=== PATIENT | male | born 1945 | race Caucasian/White ===

== ENCOUNTER 2017-10-12 15:29 | Outpatient (CLI) | payer MEDICARE ==
--- NOTE | 2017-10-13 22:14 | EKG ---
Test Reason : Blood Pressure : / mmHG Vent. Rate : 068 BPM Atrial Rate : 068 BPM P-R Int : 142 ms QRS Dur : 098 ms QT Int : 370 ms P-R-T Axes : 046 032 070 degrees QTc Int : 393 ms Sinus rhythm with marked sinus arrhythmia Incomplete right bundle branch block Borderline ECG When compared with ECG of 06-AUG-2012 09:32, No significant change was found Confirmed by ANJALI SHANE, . S. (4) on 10/13/2017 10:13:52 PM Referred By: MIRELA Confirmed By:DR. Benita ALBA MD
== END 2017-10-12 15:30 | disposition home or self-care (01) ==
LOC: LABBT 15:29
PROVIDERS: ATTEND Neurological Surgery
DX: Z01.818 Encounter for other preprocedural examination (principal); M48.02 Spinal stenosis, cervical region; M54.41 Lumbago with sciatica, right side; M54.16 Radiculopathy, lumbar region; R26.89 Other abnormalities of gait and mobility
CPT/HCPCS: 93005; 93010

== ENCOUNTER 2017-10-17 10:56 | Day surgery (SDC) | payer MEDICARE ==
[2017-10-12 15:23] VITALS: BMI 22.4
[2017-10-17] MEDS ORDERED: Midazolam HCl 2 mg/2 ml Vial ONE (11:39)
[2017-10-17] MEDS ORDERED: Fentanyl 100 MCG/2 ML VIAL ONE (11:39)
[2017-10-17] MEDS ORDERED: Propofol 500 MG/50 ML VIAL ONE (11:53)
--- NOTE | 2017-10-17 15:46 | MRI ---
MRI OF THE LUMBAR SPINE 10/17/17 COMPARISON: None. HISTORY: Lumbar radiculopathy, acute right sided low back pain with right side radiculopathy/sciatica. TECHNIQUE: Multiplanar and multisequence MR imaging of the lumbar spine is provided without contrast. FINDINGS: There is significant lumbar spine dextroscoliosis. The sagittal STIR imaging demonstrates no discrete focal area of osseous marrow edema. There is no significant anterolisthesis or retrolisthesis noted. Assuming five lumbar type vertebral bodies, conus medullaris terminates at the T12-L1 level. T12-L1: There is disc desiccation. There is mild bilateral neural foraminal stenosis on the basis of facet hypertrophy. No significant central stenosis. L1-2: There is disc space narrowing, degenerative end plate change and anterior osteophyte formation. There is bilateral facet hypertrophy, left greater than right. There is severe left neural foraminal stenosis. No significant central canal or right neural foraminal stenosis. There is left lateral ost eophyte formation. L2-3: Disc space narrowing, disc desiccation, anterior osteophyte formation and disc osteophyte compl ex present. There is no significant canal stenosis. Facet hypertrophy on the left with neural foramin al encroachment causes a moderate degree of left neural foraminal stenosis. No significant right neur al foraminal stenosis. L3-4: There is disc space narrowing and disc desiccation. There is left lateral osteophyte formation and bilateral facet hypertrophy, left greater than right. Moderate left neural foraminal stenosis. No significant central canal or right neural foraminal stenosis. L4-5: Bilateral facet hypertrophy, right greater than left. There is disc space narrowing and disc de siccation with no central canal stenosis. There is moderate/severe right neural foraminal stenosis. N o significant left neural foraminal stenosis. L5-S1: There is disc space narrowing and disc desiccation and mild disc bulge with no central canal s tenosis. There is right sided facet hypertrophy with mild right neural foraminal stenosis. No left ne ural foraminal stenosis. Imaged retroperitoneal structures demonstrate no acute findings. IMPRESSION: Multilevel lumbar spine degenerative change as described above. POS: [facility]
--- NOTE | 2017-10-17 15:46 | MRI ---
MRI CERVICAL SPINE WITHOUT CONTRAST: Date: 10/17/17 Multiplanar, multisequential imaging of cervical spine obtained. HISTORY: Cervical pain. Imbalance. Cervical stenosis. Prior cervical spine surgery. Comparison made to cervical spine MRI of 09/21/12. FINDINGS: There has been prior ACDF procedure as described previously. Anterior plate and screws are seen at C3 and at C4. There has been prior bony fusion at C2-3, C4-5, and C5-6. Posterior bony changes seen evaristo ng the posterior aspect of the vertebral bodies from C3 through C7. At C3-4, hypertrophic changes impinge on the anterior cord. Hypertrophic changes in the posterior can al impinge on the posterior aspect of the cord at C2-3 as well. These changes produce slight kinking of the cord with moderate cervical canal stenosis, similar to the prior exam of 2012. At C4-5, mild posterior bony hypertrophy efface the anterior subarachnoid space without significant c ord impingement. At C5-6, posterior bony hypertrophy is seen impinging on the anterior cord. This is slightly more pro nounced paracentrally to the right and there is right foraminal narrowing due to hypertrophic change. At C6-7, posterior disc bulge and spondylosis abuts the anterior cord. Bilateral foraminal stenosis d ue to hypertrophic change, more pronounced on the right. At C7-T1, posterior disc bulge and spondylosis abuts the anterior cord. Mild left foraminal narrowing due to facet and uncinate hypertrophy. There continues to be linear abnormal signal in the cord at C4 seen in the lateral aspect of the cord on both sides, possibly representing changes of myelomalacia. This was described previously and is u nchanged in appearance. IMPRESSION: 1. Postoperative degenerative changes of cervical spine with fusion changes described above. Hypertr ophic changes impinge into the spinal canal at multiple levels as described above. Mild kinking of th e cord at C2-3 due to the hypertrophic change is similar to the prior exam. 2. Linear T2 signal abnormality seen in the peripheral cord bilaterally at C4 is stable in appearanc e. Cervical canal and foraminal stenosis at several levels as described above. POS: [facility]
== END 2017-10-17 15:16 | disposition home or self-care (01) ==
LOC: SDC/OP 10:56
PROVIDERS: ATTEND Neurological Surgery
DX: M48.02 Spinal stenosis, cervical region (principal); M54.16 Radiculopathy, lumbar region; M54.41 Lumbago with sciatica, right side; R26.89 Other abnormalities of gait and mobility; Z88.2 Allergy status to sulfonamides; Z98.1 Arthrodesis status; Z79.899 Other long term (current) drug therapy; Z98.890 Other specified postprocedural states
CPT/HCPCS: 72141; 72148; J2250; J2704; J3010

== ENCOUNTER 2020-03-09 16:51 | Emergency (ER) | payer MEDICARE ==
--- NOTE | 2020-03-09 17:34 | RAD ---
SINGLE VIEW OF THE CHEST: Comparison: 08-26-16 History: Heart fluttering and chest pain. FINDINGS: Single view of the chest shows normal sized cardiomediastinal silhouette with atherosclerotic calcifi cations in the aorta. There is no evidence of consolidation, mass or pleural effusion. IMPRESSION: No evidence of acute cardiopulmonary disease. POS: [facility]
[2020-03-09 18:09] LABS: #Basophils 0.1 thou/uL (0.0-0.2); #Eosinphils 0.2 thou/uL (0.0-0.7); #Lymphocytes 0.9 thou/uL (1.20-3.40); #Monocytes 0.3 thou/uL (0.11-0.59); #Neutrophils 2.3 thou/uL (1.40-6.50); %Eosinophils 4.4 % (0.0-10.0); %Lymphocytes 24.2 % (21.0-51.0); %Monocytes 8.7 % (0.0-10.0); %Neutrophils 60.7 % (42.0-75.0); Hemoglobin 14.4 g/dL (14.0-18.0); Mean Corpuscular HGB CONC 34.3 g/dL (32.0-36.0); Mean Corpuscular Hemoglobin 30.9 pg (27.0-31.0); Mean Corpuscular Volume 90.2 fL (78.0-98.0); Mean Platelet Volume 7.1 fL (7.4-10.4); Platelet Count 154 thou/uL (130-400); RBC Distribution Width 11.8 % (11.5-14.5); Red Blood Cell (RBC) Count 4.67 mill/uL (4.70-6.10); White Blood Cell (WBC) Count 3.8 thou/uL (4.8-10.8)
[2020-03-09 18:41] LABS: ALT (SGPT) 18 U/L (8-55); AST (SGOT) 24 U/L (5-34); Albumin 4.3 g/dL (3.4-4.8); Alkaline Phosphatase 289 U/L (40-110); Anion Gap 12 mmol/L (10-20); BUN (Urea Nitrogen) 14 mg/dL (8.4-25.7); Bilirubin, Total 0.6 mg/dL (0.2-1.2); Calc. Creatinine Clearance 0 mL/min (70-130); Carbon Dioxide 31 mmol/L (23-31); Chloride 101 mmol/L (98-107); Estimated GFR-MDRD Greater than 90; Glucose 119 mg/dL (83-110); Potassium 4.6 mmol/L (3.5-5.1); Protein, Total 7.3 g/dL (5.8-8.1); Sodium 139 mmol/L (136-145)
[2020-03-09] MEDS ORDERED: Magnesium 2 GM/50 ML BAG (IN WATER) ONE (18:52)
== END 2020-03-09 20:27 | disposition home or self-care (01) ==
LOC: ERS 16:51
DX: R00.2 Palpitations (principal); E78.5 Hyperlipidemia, unspecified; E11.9 Type 2 diabetes mellitus without complications
CPT/HCPCS: 71045; 80053; 83735; 84484; 85025; 93005; 96365; J3475

== ENCOUNTER 2020-09-03 17:02 | Outpatient (CLI) | payer OTHER ==
[2020-09-03 17:53] LABS: SARS-CoV-2 PCR by NAA Not Detected (NotDetected)
== END 2020-09-03 17:03 | disposition home or self-care (01) ==
LOC: LABBT 17:02
PROVIDERS: ATTEND Neurological Surgery
DX: Z01.812 Encounter for preprocedural laboratory examination (principal); M54.16 Radiculopathy, lumbar region; Z20.822 Contact with and (suspected) exposure to COVID-19
CPT/HCPCS: 87635; U0003; U0005

== ENCOUNTER 2020-09-07 09:54 | Day surgery (SDC) | payer MEDICARE ==
[2020-09-04 12:03] VITALS: BMI 23.0
[2020-09-07] MEDS ORDERED: Midazolam HCl 2 mg/2 ml Vial ONE (11:46)
[2020-09-07] MEDS ORDERED: Fentanyl 100 MCG/2 ML VIAL ONE (11:46)
[2020-09-07] MEDS ORDERED: PROPOFOL 20 ML ONE (11:47)
[2020-09-07] MEDS ORDERED: Lidocaine 1% PF 5 ML VIAL ONE (12:30)
== END 2020-09-07 14:15 | disposition home or self-care (01) ==
LOC: SDC/OP 09:54
PROVIDERS: ATTEND Neurological Surgery
DX: M41.86 Other forms of scoliosis, lumbar region (principal); M43.16 Spondylolisthesis, lumbar region; M54.16 Radiculopathy, lumbar region; M48.061 Spinal stenosis, lumbar region without neurogenic claudication; K21.9 Gastro-esophageal reflux disease without esophagitis; E11.9 Type 2 diabetes mellitus without complications; Z79.82 Long term (current) use of aspirin; Z79.899 Other long term (current) drug therapy; Z88.2 Allergy status to sulfonamides; Z98.1 Arthrodesis status
CPT/HCPCS: 72148; J2250; J2704; J3010

== ENCOUNTER 2020-10-21 18:10 | Observation (INO) | payer MEDICARE, OTHER ==
[~2020-10-21 18:10] MED LIST: Iopamidol-370 76% 500 ML 1 ML ONE
[2020-10-21] MEDS ORDERED: Lidocaine Viscous Sol 2% 15 ml UD Cup ONE (18:51)
[2020-10-21] MEDS ORDERED: Mag-Al 1200 mg/1200 mg/30 ML UDCUP ONE (18:51)
[2020-10-21] MEDS ORDERED: Pantoprazole 40 MG VIAL ONE (18:51)
[2020-10-21 19:21] LABS: #Eosinphils 0.2 thou/uL (0.0-0.7); #Lymphocytes 1.1 thou/uL (1.20-3.40); #Monocytes 0.5 thou/uL (0.11-0.59); #Neutrophils 2.5 thou/uL (1.40-6.50); %Basophils 0.8 % (0.0-1.0); %Eosinophils 3.6 % (0.0-10.0); %Lymphocytes 26.2 % (21.0-51.0); %Monocytes 10.7 % (0.0-10.0); %Neutrophils 58.7 % (42.0-75.0); Hemoglobin 13.7 g/dL (14.0-18.0); Mean Corpuscular HGB CONC 34.2 g/dL (32.0-36.0); Mean Corpuscular Hemoglobin 31.1 pg (27.0-31.0); Mean Corpuscular Volume 90.8 fL (78.0-98.0); Mean Platelet Volume 6.8 fL (7.4-10.4); Platelet Count 134 thou/uL (130-400); RBC Distribution Width 11.7 % (11.5-14.5); Red Blood Cell (RBC) Count 4.42 mill/uL (4.70-6.10); White Blood Cell (WBC) Count 4.2 thou/uL (4.8-10.8)
[2020-10-21 19:43] LABS: ALT (SGPT) 23 U/L (8-55); AST (SGOT) 29 U/L (5-34); Albumin 4.1 g/dL (3.4-4.8); Alkaline Phosphatase 379 U/L (40-110); Anion Gap 12 mmol/L (10-20); BUN (Urea Nitrogen) 26 mg/dL (8.4-25.7); Bilirubin, Total 0.6 mg/dL (0.2-1.2); CK (CPK) 196 U/L (30-200); Calc. Creatinine Clearance 0 mL/min (70-130); Calcium 9.1 mg/dL (7.8-10.44); Carbon Dioxide 31 mmol/L (23-31); Chloride 101 mmol/L (98-107); Globulin 2.7 g/dL (2.4-3.5); Glucose 116 mg/dL (83-110); Lipase 46 U/L (8-78); Potassium 4.8 mmol/L (3.5-5.1); Protein, Total 6.8 g/dL (5.8-8.1); Sodium 139 mmol/L (136-145)
[2020-10-21] MEDS ORDERED: Aspirin Chewable 81 MG TAB ONE (21:05)
[2020-10-21] MEDS ORDERED: Nitroglycerin 2% Ointment 1 INCH/1 GM Packet ONE (21:05)
[2020-10-21 22:41] LABS: Troponin I Less than 0.010 ng/mL (< 0.028)
[2020-10-21 23:22] VITALS: BMI 24.1
[2020-10-22 01:39] LABS: Troponin I Less than 0.010 ng/mL (< 0.028)
[2020-10-22] MEDS ORDERED: Ondansetron PF 4 MG/2 ML Vial IVP PRN (04:22)
[2020-10-22] MEDS ORDERED: Acetaminophen 325 MG TAB PO PRN (04:22)
[2020-10-22] MEDS ORDERED: Morphine 4 MG/ML VIAL SLOW IVP PRN (04:24)
[2020-10-22] MEDS ORDERED: Nitroglycerin 0.4 MG TAB (25 Tab Bottle) SL PRN (04:24)
[2020-10-22 07:54] VITALS: TEMP 97.2
[2020-10-22] MEDS ORDERED: Regadenoson 0.4 MG/5 ML SYRINGE ONE (08:45)
[2020-10-22] MEDS ORDERED: Atorvastatin Calcium 10 MG TAB PO SCH (09:00)
[2020-10-22] MEDS ORDERED: cycloSPORINE 0.05% Ophthalmic Droperette EA EYE SCH (09:00)
[2020-10-22] MEDS ORDERED: Zinc Sulfate 220 MG CAP PO SCH (09:00)
[2020-10-22] MEDS ORDERED: Magnesium Oxide 400 MG TAB PO SCH (09:00)
[2020-10-22] MEDS ORDERED: Multivit, Therapeutic 1 TAB PO SCH (09:00)
[2020-10-22] MEDS ORDERED: PLECANATIDE 3 MG PO SCH (09:00)
[2020-10-22] MEDS ORDERED: Aspirin Chewable 81 MG TAB PO SCH (09:00)
[2020-10-22 09:19] LABS: Hemoglobin A1c 6.2 % (4.0-6.0)
[2020-10-22 09:36] LABS: Cardiac Risk 1.8 (Less than 4.5)
[2020-10-22 11:49] LABS: SARS-CoV-2 PCR by NAA Not Detected (NotDetected)
[2020-10-22 12:29] VITALS: BP 140/63
== END 2020-10-22 16:17 | disposition home or self-care (01) ==
LOC: ERS 18:10 → 2SW 20:57
PROVIDERS: ADMIT Internal Medicine; ATTEND Internal Medicine
DX: R07.89 Other chest pain (principal); I10 Essential (primary) hypertension; E78.5 Hyperlipidemia, unspecified; K21.9 Gastro-esophageal reflux disease without esophagitis; K30 Functional dyspepsia; E11.9 Type 2 diabetes mellitus without complications; Z79.82 Long term (current) use of aspirin; Z79.899 Other long term (current) drug therapy; Z88.2 Allergy status to sulfonamides; Z20.822 Contact with and (suspected) exposure to COVID-19
CPT/HCPCS: 71045; 71275; 78452; 80053; 80061; 82550; 83036; 83690; 83880; 84484 ×3; 85025; 85379; 93005; 93017; 96374; 99285; A9500; U0003; U0005; 36415; C9113; G0378; J2785; Q9967

== ENCOUNTER 2021-04-19 10:37 | Outpatient (CLI) | payer MEDICARE ==
[2021-04-19 22:02] LABS: SARS-CoV-2 PCR by NAA Not Detected (NotDetected)
== END 2021-04-19 10:38 | disposition home or self-care (01) ==
LOC: LABBT 10:37
PROVIDERS: ATTEND Neurological Surgery
DX: Z01.812 Encounter for preprocedural laboratory examination (principal); M54.12 Radiculopathy, cervical region; Z20.822 Contact with and (suspected) exposure to COVID-19
CPT/HCPCS: U0003; U0005

== ENCOUNTER 2021-04-23 12:14 | Day surgery (SDC) | payer MEDICARE ==
[2021-04-21 14:51] VITALS: BMI 23.7
[2021-04-23] MEDS ORDERED: PROPOFOL 200 MG/20 ML VIAL ONE (14:00)
[2021-04-23] MEDS ORDERED: Ondansetron PF 4 MG/2 ML Vial ONE (14:00)
[2021-04-23] MEDS ORDERED: Dexamethasone 20 MG/5 ML VIAL ONE (14:00)
[2021-04-23] MEDS ORDERED: Lidocaine 1% PF 5 ML VIAL ONE (14:00)
== END 2021-04-23 16:20 | disposition home or self-care (01) ==
LOC: MRI 12:14 → EDSTATUS 14:00 → MRI 16:20
PROVIDERS: ATTEND Neurological Surgery
DX: M50.11 Cervical disc disorder with radiculopathy, high cervical region (principal); M48.02 Spinal stenosis, cervical region; M47.22 Other spondylosis with radiculopathy, cervical region; M43.12 Spondylolisthesis, cervical region; G56.03 Carpal tunnel syndrome, bilateral upper limbs; G56.23 Lesion of ulnar nerve, bilateral upper limbs; Z79.82 Long term (current) use of aspirin; Z79.899 Other long term (current) drug therapy; Z88.2 Allergy status to sulfonamides
CPT/HCPCS: 72141; J1100; J2405; J2704

== ENCOUNTER 2022-05-21 15:42 | Inpatient (IN) | payer OTHER, MEDICARE ==
[2022-05-21] MEDS ORDERED: Boostrix 0.5 ML (Tdap) VIAL (>/=7 yrs of age) ONE (16:01)
[2022-05-21] MEDS ORDERED: Morphine 4 MG/ML VIAL ONE (16:01)
[2022-05-21] MEDS ORDERED: CEFAZOLIN 2 GM VIAL ONE (16:01)
[2022-05-21 16:09] LABS: #Eosinphils 0.2 thou/uL (0.0-0.7); #Monocytes 0.6 thou/uL (0.11-0.59); #Neutrophils 5.5 thou/uL (1.40-6.50); %Basophils 0.4 % (0.0-1.0); %Eosinophils 2.9 % (0.0-10.0); %Lymphocytes 14.2 % (21.0-51.0); %Monocytes 7.6 % (0.0-10.0); Hemoglobin 13.3 g/dL (14.0-18.0); Mean Corpuscular HGB CONC 35.2 g/dL (32.0-36.0); Mean Corpuscular Hemoglobin 32.5 pg (27.0-31.0); Mean Corpuscular Volume 92.4 fl (78.0-98.0); Mean Platelet Volume 6.9 fL (7.4-10.4); Platelet Count 154 10x3/uL (130-400); RBC Distribution Width 11.7 % (11.5-14.5); Red Blood Cell (RBC) Count 4.09 mill/uL (4.70-6.10); White Blood Cell (WBC) Count 7.3 10x3/uL (4.8-10.8)
[2022-05-21 16:30] LABS: ALT (SGPT) 25 U/L (8-55); AST (SGOT) 49 U/L (5-34); Albumin 3.7 g/dL (3.4-4.8); Alkaline Phosphatase 244 U/L (40-110); Anion Gap 13 mmol/L (10-20); BUN (Urea Nitrogen) 22 mg/dL (8.4-25.7); Bilirubin, Total 0.6 mg/dL (0.2-1.2); Calc. Creatinine Clearance 0 mL/min (70-130); Calcium 8.9 mg/dL (7.8-10.44); Carbon Dioxide 29 mmol/L (23-31); Chloride 103 mmol/L (98-107); Estimated GFR 92; Globulin 2.7 g/dL (2.4-3.5); Glucose 109 mg/dL (83-110); Potassium 4.4 mmol/L (3.5-5.1); Protein, Total 6.4 g/dL (5.8-8.1); Sodium 141 mmol/L (136-145)
[2022-05-21 16:51] LABS: CKMB 25.3 ng/mL (0-6.6)
[2022-05-21] MEDS ORDERED: Fentanyl 250 MCG/5 ML VIAL ONE (17:29)
[2022-05-21] MEDS ORDERED: Propofol 1,000 MG/100 ML VIAL IV ONE (17:41)
[2022-05-21] MEDS ORDERED: Midazolam HCl 2 mg/2 ml Vial ONE (17:41)
[2022-05-21] MEDS ORDERED: Ondansetron PF 4 MG/2 ML Vial ONE (17:50)
[2022-05-21] MEDS ORDERED: ePHEDrine 50 MG/ML VIAL ONE (17:50)
[2022-05-21] MEDS ORDERED: PHENYLEPHRINE-NS 100 MCG/ML 10 ML SYRINGE ONE (17:50)
[2022-05-21] MEDS ORDERED: PROPOFOL 200 MG/20 ML VIAL ONE (17:50)
[2022-05-21] MEDS ORDERED: Dexamethasone 20 MG/5 ML VIAL ONE (17:50)
[2022-05-21] MEDS ORDERED: Phenylephrine 10 MG/ML VIAL ONE (17:51)
[2022-05-21] MEDS ORDERED: Ondansetron PF 4 MG/2 ML Vial IVP PRN (18:20)
[2022-05-21] MEDS ORDERED: Morphine 4 MG/ML VIAL SLOW IVP PRN (18:20)
[2022-05-21] MEDS ORDERED: Dextrose 50% Abboject 50 ML SYRINGE SLOW IVP PRN (18:20)
[2022-05-21] MEDS ORDERED: Morphine 2 MG/ML VIAL SLOW IVP PRN (18:20)
[2022-05-21] MEDS ORDERED: Dextrose 5% in Water 1,000 ML IV PRN (18:20)
[2022-05-21] MEDS ORDERED: TETANUS, DIPHTHERIA TOX,ADULT (TDVAX) 0.5 ML VIAL IM ONE (18:20)
[2022-05-21] MEDS ORDERED: Ondansetron ODT 4 MG TAB PO PRN (18:20)
[2022-05-21] MEDS ORDERED: Cyclobenzaprine 10 MG TAB PO PRN (18:22)
[2022-05-21] MEDS ORDERED: traMADol HCl 50 MG TAB PO PRN (18:22)
[2022-05-21] MEDS ORDERED: Sodium Chloride 0.9% 1,000 ML IV SCH (18:30)
[2022-05-21] MEDS ORDERED: Promethazine HCl 25 MG/ML VIAL IM PRN (19:02)
[2022-05-21] MEDS ORDERED: Promethazine HCl 25 MG/ML VIAL IVPB PRN (19:02)
[2022-05-21] MEDS ORDERED: Ondansetron HCl/PF 4 MG/2 ML Vial IVP PRN (19:02)
[2022-05-21] MEDS ORDERED: Fentanyl 100 MCG/2 ML VIAL ONE (19:07)
[2022-05-21 19:56] LABS: Phosphorus 4.5 mg/dL (2.3-4.7)
[2022-05-21] MEDS: traMADol HCl 50 MG TAB PO SCH (21:46)
[2022-05-21] MEDS: CEFAZOLIN 2 GM in Sodium Chloride 0.9% 100 ML IVPB SCH (21:46)
[2022-05-21] MEDS: Senokot S 8.6-50 MG TAB PO SCH (21:47)
[2022-05-21] MEDS: Acetaminophen 500 MG TAB PO SCH (21:47)
[2022-05-21] MEDS: Ketorolac Tromethamine 30 MG/ML VIAL IVP SCH (21:56)
[2022-05-21 22:43] LABS: INR-International Normal Ratio 1.1; PTT 30.1 sec (22.9-36.1); Prothrombin Time 14.8 sec (12.0-14.7)
[2022-05-21 22:50] LABS: Lactic Acid 2.1 mmol/L (0.5-2.2)
[2022-05-21] MEDS: Morphine 4 MG/ML VIAL SLOW IVP PRN (22:52)
[2022-05-21] MEDS: Gabapentin 100 MG CAP PO SCH (23:34)
[2022-05-21] MEDS ORDERED: Sodium Chloride 0.9% 500 ML IV SCH ×2 (23:45→23:59)
[2022-05-21] MEDS ORDERED: Hydrocortisone Sod Succ/PF 100 mg/2 ml Vial IVP SCH (23:59)
[2022-05-22 00:03] LABS: #Lymphocytes 0.4 thou/uL (1.20-3.40); #Monocytes 0.6 thou/uL (0.11-0.59); #Neutrophils 7.8 thou/uL (1.40-6.50); %Eosinophils 0.3 % (0.0-10.0); %Lymphocytes 4.2 % (21.0-51.0); %Monocytes 6.5 % (0.0-10.0); Hemoglobin 10.4 g/dL (14.0-18.0); Mean Corpuscular HGB CONC 33.6 g/dL (32.0-36.0); Mean Corpuscular Hemoglobin 31.1 pg (27.0-31.0); Mean Corpuscular Volume 92.6 fl (78.0-98.0); Mean Platelet Volume 7.1 fL (7.4-10.4); Platelet Count 137 10x3/uL (130-400); RBC Distribution Width 11.6 % (11.5-14.5); Red Blood Cell (RBC) Count 3.33 mill/uL (4.70-6.10); White Blood Cell (WBC) Count 8.8 10x3/uL (4.8-10.8)
[2022-05-22 00:10] LABS: Lactic Acid 1.7 mmol/L (0.5-2.2)
[2022-05-22 00:15] LABS: Anion Gap 12 mmol/L (10-20); BUN (Urea Nitrogen) 25 mg/dL (8.4-25.7); Calc. Creatinine Clearance 63 mL/min (70-130); Calcium 8.1 mg/dL (7.8-10.44); Carbon Dioxide 25 mmol/L (23-31); Chloride 105 mmol/L (98-107); Estimated GFR 90; Glucose 231 mg/dL (83-110); Magnesium 1.9 mg/dL (1.6-2.6); Potassium 4.3 mmol/L (3.5-5.1); Sodium 138 mmol/L (136-145)
[2022-05-22] MEDS: Ketorolac Tromethamine 30 MG/ML VIAL IVP SCH ×4 (00:15→18:21)
[2022-05-22] MEDS ORDERED: Magnesium 2 GM/50 ML(in water) 2 GM in Premix Bag 1 BAG IVPB SCH (00:30)
[2022-05-22] MEDS: Insulin Regular 300 UNITS/3 ML VIAL SC PRN ×2 (01:06→05:33)
[2022-05-22] MEDS: traMADol HCl 50 MG TAB PO SCH (01:06)
[2022-05-22] MEDS: Acetaminophen 500 MG TAB PO SCH ×4 (01:07→20:00)
[2022-05-22 05:17] LABS: Phosphorus 5.6 mg/dL (2.3-4.7)
[2022-05-22 05:18] LABS: #Basophils 0.1 thou/uL (0.0-0.2); #Lymphocytes 0.3 thou/uL (1.20-3.40); #Monocytes 0.6 thou/uL (0.11-0.59); #Neutrophils 7.4 thou/uL (1.40-6.50); %Basophils 0.7 % (0.0-1.0); %Eosinophils 0.3 % (0.0-10.0); %Lymphocytes 3.5 % (21.0-51.0); %Monocytes 7.1 % (0.0-10.0); %Neutrophils 88.3 % (42.0-75.0); Hemoglobin 10.4 g/dL (14.0-18.0); Mean Corpuscular HGB CONC 33.8 g/dL (32.0-36.0); Mean Corpuscular Hemoglobin 31.7 pg (27.0-31.0); Mean Corpuscular Volume 93.9 fl (78.0-98.0); Mean Platelet Volume 7.2 fL (7.4-10.4); Platelet Count 143 10x3/uL (130-400); RBC Distribution Width 11.7 % (11.5-14.5); Red Blood Cell (RBC) Count 3.28 mill/uL (4.70-6.10); White Blood Cell (WBC) Count 8.4 10x3/uL (4.8-10.8)
[2022-05-22 05:21] LABS: Anion Gap 13 mmol/L (10-20); BUN (Urea Nitrogen) 25 mg/dL (8.4-25.7); Calc. Creatinine Clearance 67 mL/min (70-130); Calcium 8.1 mg/dL (7.8-10.44); Carbon Dioxide 23 mmol/L (23-31); Chloride 107 mmol/L (98-107); Estimated GFR 92; Glucose 231 mg/dL (83-110); Magnesium 2.4 mg/dL (1.6-2.6); Potassium 4.6 mmol/L (3.5-5.1); Sodium 138 mmol/L (136-145)
[2022-05-22 05:25] LABS: Troponin I 0.102 ng/mL (< 0.028)
[2022-05-22] MEDS: Morphine 4 MG/ML VIAL SLOW IVP PRN (05:34)
[2022-05-22] MEDS: CEFAZOLIN 2 GM in Sodium Chloride 0.9% 100 ML IVPB SCH ×2 (05:36→14:02)
[2022-05-22] MEDS ORDERED: Ventilator Sedation Protocol FS PRN (07:34)
[2022-05-22] MEDS ORDERED: Midazolam HCl 2 mg/2 ml Vial SLOW IVP PRN (07:36)
[2022-05-22] MEDS ORDERED: Propofol 1,000 MG/100 ML VIAL IV PRN (07:45)
[2022-05-22] MEDS ORDERED: Propofol BOLUS 1,000 MG/100 ML VIAL IV PRN (07:45)
[2022-05-22] MEDS ORDERED: Fentanyl BOLUS 250 ML IVPB PRN (07:45)
[2022-05-22] MEDS ORDERED: Morphine 4 MG/ML VIAL SLOW IVP PRN (07:45)
[2022-05-22] MEDS ORDERED: Fentanyl CADD 100 ML IV SCH (07:45)
[2022-05-22 07:46] LABS: Actual Bicarbonate (HCO3a) 23.3 mEq/L (22-28); Base Excess (BEa) -2.4 mEq/L (-2.0 to +3.0); CO2 Tension 43.7 mmHg (35.0-45.0); Calcium, Ionized (arterial) 1.15 mmol/L (1.12-1.30); Hemoglobin (Hb) 9.2 g/dL (14.0-18.0); O2 Tension (PaO2), arterial 229.2 mmHg (> 70.0); Potassium - ABG Lab 4.76 mmol/L (3.70-5.30); pH, Arterial 7.34 (7.35-7.45)
[2022-05-22] MEDS ORDERED: NOREPINEPHRINE 8 MG/250 ML-D5W 250 ML ONE (07:49)
[2022-05-22 07:51] LABS: ALV-art Gradient 143.975 mmHg (0-20); Puncture Site LFA
[2022-05-22 07:52] LABS: #Lymphocytes 0.4 thou/uL (1.20-3.40); #Monocytes 0.7 thou/uL (0.11-0.59); %Eosinophils 0.3 % (0.0-10.0); %Lymphocytes 6.6 % (21.0-51.0); %Monocytes 10.7 % (0.0-10.0); %Neutrophils 82.5 % (42.0-75.0); Hemoglobin 9.1 g/dL (14.0-18.0); Mean Corpuscular HGB CONC 33.4 g/dL (32.0-36.0); Mean Corpuscular Hemoglobin 31.4 pg (27.0-31.0); Platelet Count 137 10x3/uL (130-400); RBC Distribution Width 11.7 % (11.5-14.5); Red Blood Cell (RBC) Count 2.91 mill/uL (4.70-6.10); White Blood Cell (WBC) Count 6.1 10x3/uL (4.8-10.8)
[2022-05-22 08:16] LABS: Anion Gap 15 mmol/L (10-20); BUN (Urea Nitrogen) 26 mg/dL (8.4-25.7); Calc. Creatinine Clearance 53 mL/min (70-130); Calcium 7.9 mg/dL (7.8-10.44); Carbon Dioxide 21 mmol/L (23-31); Chloride 107 mmol/L (98-107); Estimated GFR 78; Glucose 241 mg/dL (83-110); Potassium 4.6 mmol/L (3.5-5.1); Sodium 138 mmol/L (136-145)
[2022-05-22] MEDS ORDERED: Sodium Chloride 0.9% 1,000 ML IV SCH ×2 (08:30→13:15)
[2022-05-22] MEDS: Gabapentin 100 MG CAP PO SCH ×2 (09:00→15:17)
[2022-05-22] MEDS: Senokot S 8.6-50 MG TAB PO SCH ×2 (09:00→20:01)
[2022-05-22] MEDS: Famotidine/PF 20 mg/2ml Vial SLOW IVP SCH ×2 (09:01→20:01)
[2022-05-22] MEDS: Hydrocortisone Sod Succ/PF 100 mg/2 ml Vial IVP SCH ×3 (09:01→20:01)
[2022-05-22] MEDS: Polyethylene Glycol 3350 17 GM Packet PO SCH (09:01)
[2022-05-22] MEDS ORDERED: NOREPINEPHRINE 8 MG/250 ML-D5W 250 ML IVPB SCH (09:15)
[2022-05-22 13:01] LABS: Lactic Acid 2.1 mmol/L (0.5-2.2)
[2022-05-22] MEDS ORDERED: Ipratropium/Albuterol 3 ML NEB NEB PRN (14:02)
[2022-05-22] MEDS: Sodium Chloride 0.9% 1,000 ML IV SCH ×2 (14:05→20:02)
[2022-05-22] MEDS ORDERED: Sodium Chloride 0.9% 500 ML IVPB SCH (18:30)
[2022-05-22 20:04] LABS: #Lymphocytes 0.5 thou/uL (1.20-3.40); #Monocytes 0.5 thou/uL (0.11-0.59); #Neutrophils 4.4 thou/uL (1.40-6.50); %Eosinophils 0.1 % (0.0-10.0); %Lymphocytes 9.5 % (21.0-51.0); %Monocytes 8.4 % (0.0-10.0); %Neutrophils 82.1 % (42.0-75.0); Hemoglobin 8.8 g/dL (14.0-18.0); Mean Corpuscular HGB CONC 35.3 g/dL (32.0-36.0); Mean Corpuscular Hemoglobin 32.3 pg (27.0-31.0); Mean Corpuscular Volume 91.7 fl (78.0-98.0); RBC Distribution Width 11.5 % (11.5-14.5); Red Blood Cell (RBC) Count 2.72 mill/uL (4.70-6.10); White Blood Cell (WBC) Count 5.4 10x3/uL (4.8-10.8)
[2022-05-22 20:23] LABS: Mean Platelet Volume 7.4 fL (7.4-10.4); Platelet Count 90 10x3/uL (130-400); Platelet Morphology Comment Appears Decreased; RBC Morphology Normal
[2022-05-22 20:27] LABS: Anion Gap 11 mmol/L (10-20); BUN (Urea Nitrogen) 30 mg/dL (8.4-25.7); Calc. Creatinine Clearance 61 mL/min (70-130); Calcium 7.6 mg/dL (7.8-10.44); Carbon Dioxide 22 mmol/L (23-31); Chloride 110 mmol/L (98-107); Estimated GFR 89; Glucose 160 mg/dL (83-110); Magnesium 2.2 mg/dL (1.6-2.6); Phosphorus 3.5 mg/dL (2.3-4.7); Potassium 4.4 mmol/L (3.5-5.1); Sodium 139 mmol/L (136-145)
[2022-05-22] MEDS ORDERED: Sodium Phosphate 15 MMOL in Sodium Chloride 0.9% 250 ML 250 ML IVPB SCH (22:00)
[2022-05-23] MEDS: Ketorolac Tromethamine 30 MG/ML VIAL IVP SCH ×5 (00:18→23:56)
[2022-05-23] MEDS: Gabapentin 100 MG CAP PO SCH ×4 (00:18→22:12)
[2022-05-23] MEDS: Hydrocortisone Sod Succ/PF 100 mg/2 ml Vial IVP SCH ×4 (01:51→20:35)
[2022-05-23] MEDS: Acetaminophen 500 MG TAB PO SCH ×4 (01:51→20:38)
[2022-05-23 04:26] LABS: #Lymphocytes 0.4 thou/uL (1.20-3.40); #Monocytes 0.5 thou/uL (0.11-0.59); #Neutrophils 4.4 thou/uL (1.40-6.50); %Basophils 0.7 % (0.0-1.0); %Eosinophils 0.1 % (0.0-10.0); %Lymphocytes 7.3 % (21.0-51.0); %Monocytes 9.2 % (0.0-10.0); %Neutrophils 82.6 % (42.0-75.0); Hemoglobin 8.8 g/dL (14.0-18.0); Mean Corpuscular HGB CONC 35.5 g/dL (32.0-36.0); Mean Corpuscular Hemoglobin 32.3 pg (27.0-31.0); Mean Platelet Volume 8.3 fL (7.4-10.4); Platelet Count 51 10x3/uL (130-400); Red Blood Cell (RBC) Count 2.73 mill/uL (4.70-6.10); White Blood Cell (WBC) Count 5.4 10x3/uL (4.8-10.8)
[2022-05-23] MEDS: Sodium Chloride 0.9% 1,000 ML IV SCH (05:53)
[2022-05-23 07:01] LABS: Anion Gap 11 mmol/L (10-20); BUN (Urea Nitrogen) 34 mg/dL (8.4-25.7); CK (CPK) 1488 U/L (30-200); Calc. Creatinine Clearance 68 mL/min (70-130); Calcium 7.8 mg/dL (7.8-10.44); Carbon Dioxide 21 mmol/L (23-31); Chloride 110 mmol/L (98-107); Estimated GFR 92; Glucose 166 mg/dL (83-110); Magnesium 2.2 mg/dL (1.6-2.6); Potassium 4.3 mmol/L (3.5-5.1); Sodium 138 mmol/L (136-145)
[2022-05-23] MEDS: Senokot S 8.6-50 MG TAB PO SCH ×2 (07:13→20:38)
[2022-05-23] MEDS: Famotidine/PF 20 mg/2ml Vial SLOW IVP SCH (07:14)
[2022-05-23 07:46] LABS: Actual Bicarbonate (HCO3a) 24.2 mEq/L (22-28); Base Excess (BEa) 0.3 mEq/L (-2.0 to +3.0); CO2 Tension 35.4 mmHg (35.0-45.0); Calcium, Ionized (arterial) 0.99 mmol/L (1.12-1.30); Carboxyhemoglobin (COHb) 0.2 gm% (0.0-3.0); Potassium - ABG Lab 4.03 mmol/L (3.70-5.30); Puncture Site LRA; pH, Arterial 7.45 (7.35-7.45)
[2022-05-23] MEDS: Polyethylene Glycol 3350 17 GM Packet PO SCH (10:20)
[2022-05-23] MEDS ORDERED: Haloperidol Lactate 5 MG/ML VIAL ONE (12:05)
[2022-05-23] MEDS ORDERED: Gabapentin 100 MG CAP PO SCH (12:45)
[2022-05-23] MEDS ORDERED: traMADol HCl 50 MG TAB PO PRN (12:45)
[2022-05-23] MEDS ORDERED: Cyclobenzaprine 10 MG TAB PO PRN (12:45)
[2022-05-23] MEDS ORDERED: Furosemide 20 MG/2 ML VIAL SLOW IVP SCH (13:30)
[2022-05-23] MEDS: traMADol HCl 50 MG TAB PO SCH ×2 (15:06→20:38)
[2022-05-23] MEDS ORDERED: traMADol HCl 50 MG TAB PO SCH (18:00)
[2022-05-23] MEDS: Famotidine 20 MG TAB PO SCH (20:38)
[2022-05-24] MEDS: Acetaminophen 500 MG TAB PO SCH ×4 (02:07→20:21)
[2022-05-24] MEDS: Hydrocortisone Sod Succ/PF 100 mg/2 ml Vial IVP SCH ×4 (02:07→20:19)
[2022-05-24] MEDS: traMADol HCl 50 MG TAB PO SCH ×4 (02:07→20:20)
[2022-05-24 03:46] LABS: #Lymphocytes 0.4 thou/uL (1.20-3.40); #Monocytes 0.6 thou/uL (0.11-0.59); #Neutrophils 5.2 thou/uL (1.40-6.50); %Eosinophils 0.1 % (0.0-10.0); %Lymphocytes 6.6 % (21.0-51.0); %Monocytes 9.1 % (0.0-10.0); %Neutrophils 84.3 % (42.0-75.0); Hemoglobin 8.7 g/dL (14.0-18.0); Mean Corpuscular HGB CONC 35.3 g/dL (32.0-36.0); Mean Corpuscular Hemoglobin 32.3 pg (27.0-31.0); Mean Corpuscular Volume 91.6 fl (78.0-98.0); Mean Platelet Volume 7.9 fL (7.4-10.4); Platelet Count 86 10x3/uL (130-400); Red Blood Cell (RBC) Count 2.69 mill/uL (4.70-6.10); White Blood Cell (WBC) Count 6.2 10x3/uL (4.8-10.8)
[2022-05-24 04:13] LABS: Anion Gap 11 mmol/L (10-20); BUN (Urea Nitrogen) 40 mg/dL (8.4-25.7); CK (CPK) 2424 U/L (30-200); Calc. Creatinine Clearance 74 mL/min (70-130); Carbon Dioxide 25 mmol/L (23-31); Chloride 108 mmol/L (98-107); Estimated GFR 95; Glucose 148 mg/dL (83-110); Magnesium 2.4 mg/dL (1.6-2.6); Phosphorus 3.3 mg/dL (2.3-4.7); Potassium 4.6 mmol/L (3.5-5.1); Sodium 139 mmol/L (136-145)
[2022-05-24] MEDS: Ketorolac Tromethamine 30 MG/ML VIAL IVP SCH ×3 (06:09→19:33)
[2022-05-24] MEDS: Senokot S 8.6-50 MG TAB PO SCH ×2 (07:44→20:35)
[2022-05-24] MEDS: Famotidine 20 MG TAB PO SCH ×2 (07:44→20:21)
[2022-05-24] MEDS: Gabapentin 100 MG CAP PO SCH ×2 (07:44→15:58)
[2022-05-24] MEDS: Polyethylene Glycol 3350 17 GM Packet PO SCH (07:45)
[2022-05-24] MEDS: Tamsulosin HCl 0.4 MG CAP PO SCH (09:12)
[2022-05-24] MEDS: Insulin Regular 300 UNITS/3 ML VIAL SC PRN (12:14)
[2022-05-24] MEDS: QUEtiapine 25 MG TAB PO SCH (20:22)
[2022-05-24] MEDS: Melatonin 3 MG TAB PO SCH (20:35)
[2022-05-25] MEDS: Ketorolac Tromethamine 30 MG/ML VIAL IVP SCH ×4 (00:27→18:12)
[2022-05-25] MEDS: Gabapentin 100 MG CAP PO SCH ×3 (00:38→08:51)
[2022-05-25] MEDS: Acetaminophen 500 MG TAB PO SCH ×4 (01:12→20:33)
[2022-05-25] MEDS: Hydrocortisone Sod Succ/PF 100 mg/2 ml Vial IVP SCH ×2 (02:27→09:28)
[2022-05-25] MEDS: traMADol HCl 50 MG TAB PO SCH ×2 (02:31→08:51)
[2022-05-25] MEDS: Insulin Regular 300 UNITS/3 ML VIAL SC PRN ×3 (04:47→16:37)
[2022-05-25] MEDS: Polyethylene Glycol 3350 17 GM Packet PO SCH (08:49)
[2022-05-25] MEDS: Senokot S 8.6-50 MG TAB PO SCH ×2 (08:49→20:34)
[2022-05-25] MEDS: Tamsulosin HCl 0.4 MG CAP PO SCH (08:50)
[2022-05-25] MEDS: Famotidine 20 MG TAB PO SCH ×2 (08:50→20:33)
[2022-05-25] MEDS: Melatonin 3 MG TAB PO SCH (20:33)
[2022-05-25] MEDS: QUEtiapine 25 MG TAB PO SCH (20:34)
[2022-05-25] MEDS ORDERED: Haloperidol Lactate 5 MG/ML VIAL IM SCH (22:30)
[2022-05-26] MEDS: Ketorolac Tromethamine 30 MG/ML VIAL IVP SCH ×3 (00:35→12:08)
[2022-05-26] MEDS: Acetaminophen 500 MG TAB PO SCH ×4 (02:27→21:01)
[2022-05-26 04:31] LABS: Anion Gap 13 mmol/L (10-20); BUN (Urea Nitrogen) 56 mg/dL (8.4-25.7); CK (CPK) 1755 U/L (30-200); Calc. Creatinine Clearance 83 mL/min (70-130); Carbon Dioxide 25 mmol/L (23-31); Chloride 108 mmol/L (98-107); Estimated GFR 98; Glucose 147 mg/dL (83-110); Magnesium 2.6 mg/dL (1.6-2.6); Phosphorus 2.1 mg/dL (2.3-4.7); Potassium 4.8 mmol/L (3.5-5.1); Sodium 141 mmol/L (136-145)
[2022-05-26 04:56] LABS: Band 28 % (5-11); Hemoglobin 7.7 g/dL (14.0-18.0); Lymphocytes 15 % (21-51); MDiff Complete? YES; Mean Corpuscular HGB CONC 33.9 g/dL (32.0-36.0); Mean Corpuscular Hemoglobin 30.9 pg (27.0-31.0); Neutrophil 45 % (42-75); Platelet Count 120 10x3/uL (130-400); Red Blood Cell (RBC) Count 2.48 mill/uL (4.70-6.10); White Blood Cell (WBC) Count 4.3 10x3/uL (4.8-10.8)
[2022-05-26 04:57] LABS: Monocytes 12 % (0-10)
[2022-05-26 05:07] LABS: Actual Bicarbonate (HCO3a) 28.8 mEq/L (22-28); Base Excess (BEa) 2.3 mEq/L (-2.0 to +3.0); CO2 Tension 55.8 mmHg (35.0-45.0); Calcium, Ionized (arterial) 1.28 mmol/L (1.12-1.30); Carboxyhemoglobin (COHb) 1.3 gm% (0.0-3.0); Potassium - ABG Lab 4.48 mmol/L (3.70-5.30); pH, Arterial 7.33 (7.35-7.45)
[2022-05-26 05:09] LABS: O2 Tension (PaO2), arterial 57.9 mmHg (> 70.0); Puncture Site RRA
[2022-05-26] MEDS ORDERED: Piperacillin/Tazobactam 3.375 GM in Sodium Chloride 0.9% 100 ML IVPB SCH ×2 (05:30→10:00)
[2022-05-26] MEDS ORDERED: Midazolam HCl 2 mg/2 ml Vial SLOW IVP SCH ×3 (06:15→15:30)
[2022-05-26] MEDS: Aspirin 81 mg Enteric Coated Tablet PO SCH (08:19)
[2022-05-26] MEDS: Famotidine 20 MG TAB PO SCH ×2 (08:19→21:03)
[2022-05-26] MEDS: Tamsulosin HCl 0.4 MG CAP PO SCH (08:20)
[2022-05-26] MEDS: Polyethylene Glycol 3350 17 GM Packet PO SCH (08:20)
[2022-05-26] MEDS: Senokot S 8.6-50 MG TAB PO SCH ×2 (08:20→21:03)
[2022-05-26 08:26] LABS: Troponin I 0.039 ng/mL (< 0.028)
[2022-05-26] MEDS ORDERED: Sodium Chloride 0.9% 1,000 ML IV SCH (09:30)
[2022-05-26] MEDS ORDERED: Furosemide 40 MG/4 ML VIAL SLOW IVP SCH (10:45)
[2022-05-26] MEDS: Ipratropium/Albuterol 3 ML NEB NEB SCH ×3 (13:32→23:33)
[2022-05-26] MEDS ORDERED: Vecuronium 10 MG VIAL IVP SCH (13:54)
[2022-05-26] MEDS ORDERED: Dexmedetomidine In 0.9 % NaCl 100 ML IVPB SCH (14:00)
[2022-05-26] MEDS ORDERED: Midazolam HCl 2 mg/2 ml Vial SLOW IVP PRN (14:09)
[2022-05-26] MEDS ORDERED: DISCONTINUE PREVIOUS NARCOTIC PAIN MEDICATIONS AND BENZODIAZEPINES FS SCH (14:15)
[2022-05-26] MEDS ORDERED: Morphine 4 MG/ML VIAL SLOW IVP PRN (14:15)
[2022-05-26] MEDS ORDERED: Propofol BOLUS 1,000 MG/100 ML VIAL IV PRN (14:15)
[2022-05-26] MEDS ORDERED: Propofol 1,000 MG/100 ML VIAL IV PRN (14:15)
[2022-05-26] MEDS ORDERED: Phenylephrine 10 MG/ML VIAL ONE (14:18)
[2022-05-26] MEDS ORDERED: Morphine 2 MG/ML VIAL SLOW IVP PRN (14:43)
[2022-05-26] MEDS ORDERED: Fentanyl BOLUS 250 ML IVPB PRN (14:45)
[2022-05-26] MEDS ORDERED: Hydrocortisone Sod Succ/PF 100 mg/2 ml Vial IVP SCH (15:00)
[2022-05-26] MEDS ORDERED: Rocuronium Bromide 10 MG/ML (10ML VIAL) IVP SCH (15:30)
[2022-05-26] MEDS ORDERED: PHENYLEPHRINE-NS 100 MCG/ML 10 ML SYRINGE IVP SCH (15:45)
[2022-05-26] MEDS ORDERED: Sodium Chloride 0.9% 500 ML IVPB SCH (15:45)
[2022-05-26] MEDS: Midazolam HCl 2 mg/2 ml Vial SLOW IVP PRN ×3 (17:03→22:18)
[2022-05-26] MEDS: Melatonin 3 MG TAB PO SCH (21:03)
[2022-05-26] MEDS: Insulin Regular 300 UNITS/3 ML VIAL SC PRN (22:24)
[2022-05-26] MEDS ORDERED: Sodium Chloride 0.9% 500 ML IV SCH (22:45)
[2022-05-27] MEDS: Hydrocortisone Sod Succ/PF 100 mg/2 ml Vial IVP SCH ×5 (00:29→23:42)
[2022-05-27] MEDS: Midazolam HCl 2 mg/2 ml Vial SLOW IVP PRN ×3 (00:29→04:31)
[2022-05-27] MEDS: Acetaminophen 500 MG TAB PO SCH ×4 (01:13→21:59)
[2022-05-27 02:31] LABS: Band 32 % (5-11); Hemoglobin 7.7 g/dL (14.0-18.0); Lymphocytes 8 % (21-51); MDiff Complete? YES; Macrocytosis SLIGHT = 6-15 cells (100X) (0-5/hpf); Mean Corpuscular HGB CONC 33.8 g/dL (32.0-36.0); Mean Corpuscular Hemoglobin 31.8 pg (27.0-31.0); Mean Corpuscular Volume 94.1 fl (78.0-98.0); Mean Platelet Volume 7.6 fL (7.4-10.4); Monocytes 4 % (0-10); Neutrophil 56 % (42-75); Platelet Count 129 10x3/uL (130-400); Platelet Morphology Comment Appears Increased; RBC Distribution Width 12.8 % (11.5-14.5); Red Blood Cell (RBC) Count 2.43 mill/uL (4.70-6.10); White Blood Cell (WBC) Count 7.5 10x3/uL (4.8-10.8)
[2022-05-27 02:46] LABS: Anion Gap 13 mmol/L (10-20); BUN (Urea Nitrogen) 63 mg/dL (8.4-25.7); Calc. Creatinine Clearance 52 mL/min (70-130); Calcium 8.3 mg/dL (7.8-10.44); Carbon Dioxide 25 mmol/L (23-31); Chloride 110 mmol/L (98-107); Estimated GFR 73; Glucose 200 mg/dL (83-110); Magnesium 2.4 mg/dL (1.6-2.6); Potassium 4.4 mmol/L (3.5-5.1); Sodium 144 mmol/L (136-145)
[2022-05-27] MEDS: Insulin Regular 300 UNITS/3 ML VIAL SC PRN ×4 (05:10→22:34)
[2022-05-27] MEDS: Ipratropium/Albuterol 3 ML NEB NEB SCH ×5 (07:04→23:45)
[2022-05-27] MEDS ORDERED: Digoxin 0.5 MG/2 ML AMP SLOW IVP SCH ×2 (08:14→15:00)
[2022-05-27 08:26] LABS: Base Excess (BEa) -0.5 mEq/L (-2.0 to +3.0); CO2 Tension 38.6 mmHg (35.0-45.0); Calcium, Ionized (arterial) 1.21 mmol/L (1.12-1.30); Carboxyhemoglobin (COHb) 1.4 gm% (0.0-3.0); pH, Arterial 7.41 (7.35-7.45)
[2022-05-27 08:28] LABS: O2 Tension (PaO2), arterial 83.4 mmHg (> 70.0); Puncture Site RBA
[2022-05-27 08:45] LABS: Troponin I 0.035 ng/mL (< 0.028)
[2022-05-27] MEDS ORDERED: Piperacillin/Tazobactam 4.5 GM in Sodium Chloride 0.9% 100 ML IVPB SCH (08:47)
[2022-05-27] MEDS ORDERED: Fentanyl 100 MCG/2 ML VIAL SLOW IVP SCH (08:50)
[2022-05-27] MEDS: Aspirin 81 mg Enteric Coated Tablet PO SCH (08:59)
[2022-05-27] MEDS ORDERED: Piperacillin/Tazobactam 3.375 GM in Sodium Chloride 0.9% 100 ML IVPB SCH (09:00)
[2022-05-27] MEDS: Tamsulosin HCl 0.4 MG CAP PO SCH (09:07)
[2022-05-27] MEDS: Famotidine 20 MG TAB PO SCH ×2 (09:07→21:58)
[2022-05-27] MEDS: Senokot S 8.6-50 MG TAB PO SCH ×2 (09:08→22:00)
[2022-05-27] MEDS: Polyethylene Glycol 3350 17 GM Packet PO SCH (09:09)
[2022-05-27] MEDS ORDERED: Amiodarone 150 MG, Admixture Fee 1 EACH in Dextrose 5% in Water 100 ML IVPB SCH (09:15)
[2022-05-27] MEDS: Amiodarone 450 MG in Dextrose 5% in Water 250 ML IVPB SCH ×2 (09:35→16:19)
[2022-05-27 10:39] LABS: Bilirubin Negative (Negative); Blood, Urine Negative (Negative); CAUTI Indications for Culture Dysuria,urgency,freq; Clarity Clear (Clear); Glucose, Urine (Dipstick) Normal (Negative); Ketone, Urine Trace mg/dL (Negative); Leukocyte 75 Leu/uL (Negative); Nitrite Negative (Negative); Protein, Urine (Dipstick) 20 mg/dL (Neg-Trace); Specific Gravity, Urine 1.025 (1.002-1.036)
[2022-05-27 10:46] LABS: Urine Culture Reflex No No
[2022-05-27 11:05] LABS: Bacteria/HPF None Seen HPF (None Seen); Mucous/LPF Rare LPF (<2+); Squamous Epithelial 0-3 HPF (0-3); WBC/HPF 0-3 HPF (0-3)
[2022-05-27] MEDS ORDERED: Fentanyl CADD 100 ML ONE (11:54)
[2022-05-27] MEDS: Piperacillin/Tazobactam 3.375 GM in Sodium Chloride 0.9% 100 ML IVPB SCH ×2 (14:14→21:58)
[2022-05-27] MEDS: Sodium Chloride 0.9% 1,000 ML IV SCH (17:11)
[2022-05-27 19:27] LABS: Actual Bicarbonate (HCO3a) 23.7 mEq/L (22-28); Base Excess (BEa) -2.1 mEq/L (-2.0 to +3.0); CO2 Tension 45.5 mmHg (35.0-45.0); Calcium, Ionized (arterial) 1.19 mmol/L (1.12-1.30); Hemoglobin (Hb) 9.3 g/dL (14.0-18.0); Potassium - ABG Lab 4.13 mmol/L (3.70-5.30); pH, Arterial 7.34 (7.35-7.45)
[2022-05-27 19:29] LABS: O2 Tension (PaO2), arterial 56.6 mmHg (> 70.0); Puncture Site LRA
[2022-05-27 19:30] LABS: ALV-art Gradient 314.325 mmHg (0-20)
[2022-05-27] MEDS ORDERED: NOREPINEPHRINE 8 MG/250 ML-D5W 250 ML IVPB SCH (21:15)
[2022-05-27] MEDS: Melatonin 3 MG TAB PO SCH (21:59)
[2022-05-28] MEDS: Acetaminophen 500 MG TAB PO SCH ×4 (02:59→20:24)
[2022-05-28 05:17] LABS: Hemoglobin 9.5 g/dL (14.0-18.0); Mean Corpuscular HGB CONC 32.5 g/dL (32.0-36.0); Mean Corpuscular Volume 95.4 fl (78.0-98.0); Mean Platelet Volume 7.9 fL (7.4-10.4); Platelet Count 163 10x3/uL (130-400); RBC Distribution Width 13.2 % (11.5-14.5); Red Blood Cell (RBC) Count 3.05 mill/uL (4.70-6.10); White Blood Cell (WBC) Count 16.2 10x3/uL (4.8-10.8)
[2022-05-28 05:27] LABS: Lactic Acid 2.2 mmol/L (0.5-2.2)
[2022-05-28] MEDS: Piperacillin/Tazobactam 3.375 GM in Sodium Chloride 0.9% 100 ML IVPB SCH ×3 (05:27→20:25)
[2022-05-28] MEDS: Hydrocortisone Sod Succ/PF 100 mg/2 ml Vial IVP SCH ×4 (05:28→23:09)
[2022-05-28] MEDS: Insulin Regular 300 UNITS/3 ML VIAL SC PRN ×3 (05:29→15:51)
[2022-05-28 05:34] LABS: Anion Gap 11 mmol/L (10-20); BUN (Urea Nitrogen) 80 mg/dL (8.4-25.7); Calc. Creatinine Clearance 38 mL/min (70-130); Calcium 8.5 mg/dL (7.8-10.44); Carbon Dioxide 25 mmol/L (23-31); Chloride 110 mmol/L (98-107); Estimated GFR 56; Glucose 218 mg/dL (83-110); Magnesium 2.9 mg/dL (1.6-2.6); Phosphorus 3.7 mg/dL (2.3-4.7); Potassium 4.1 mmol/L (3.5-5.1); Sodium 142 mmol/L (136-145)
[2022-05-28 05:41] LABS: Band 12 % (5-11); Lymphocytes 7 % (21-51); MDiff Complete? YES; Metamyelocyte 2 % (0-0); Monocytes 8 % (0-10); Neutrophil 71 % (42-75); Platelet Morphology Comment Appears Adequate; RBC Morphology Normal
[2022-05-28] MEDS: Ipratropium/Albuterol 3 ML NEB NEB SCH ×4 (06:48→23:35)
[2022-05-28 07:23] LABS: Actual Bicarbonate (HCO3a) 25.2 mEq/L (22-28); Base Excess (BEa) -0.5 mEq/L (-2.0 to +3.0); CO2 Tension 46.3 mmHg (35.0-45.0); Calcium, Ionized (arterial) 1.19 mmol/L (1.12-1.30); Carboxyhemoglobin (COHb) 0.4 gm% (0.0-3.0); Hemoglobin (Hb) 10.2 g/dL (14.0-18.0); O2 Tension (PaO2), arterial 75.6 mmHg (> 70.0); Potassium - ABG Lab 3.89 mmol/L (3.70-5.30); pH, Arterial 7.35 (7.35-7.45)
[2022-05-28 07:27] LABS: Puncture Site Arterial Line
[2022-05-28 07:28] LABS: ALV-art Gradient 223.025 mmHg (0-20)
[2022-05-28] MEDS: Amiodarone 450 MG in Dextrose 5% in Water 250 ML IVPB SCH ×2 (09:08→23:07)
[2022-05-28] MEDS: Aspirin 81 mg Enteric Coated Tablet PO SCH (09:08)
[2022-05-28] MEDS: Famotidine 20 MG TAB PO SCH (09:09)
[2022-05-28] MEDS: Polyethylene Glycol 3350 17 GM Packet PO SCH (09:09)
[2022-05-28] MEDS: Tamsulosin HCl 0.4 MG CAP PO SCH (09:09)
[2022-05-28] MEDS: Senokot S 8.6-50 MG TAB PO SCH ×2 (09:10→20:25)
[2022-05-28] MEDS: Apixaban 5 MG TAB PER TUBE SCH ×2 (09:11→20:25)
[2022-05-28 10:49] LABS: Actual Bicarbonate (HCO3a) 26.7 mEq/L (22-28); Base Excess (BEa) 1.5 mEq/L (-2.0 to +3.0); CO2 Tension 45.1 mmHg (35.0-45.0); Calcium, Ionized (arterial) 1.18 mmol/L (1.12-1.30); Carboxyhemoglobin (COHb) 0.8 gm% (0.0-3.0); Hemoglobin (Hb) 10.1 g/dL (14.0-18.0); O2 Tension (PaO2), arterial 67.4 mmHg (> 70.0); Potassium - ABG Lab 3.96 mmol/L (3.70-5.30); pH, Arterial 7.39 (7.35-7.45)
[2022-05-28 10:52] LABS: ALV-art Gradient 161.425 mmHg (0-20); Puncture Site Arterial Line
[2022-05-28] MEDS: Sodium Chloride 0.9% 1,000 ML IV SCH (12:36)
[2022-05-28] MEDS: Melatonin 3 MG TAB PO SCH (20:24)
[2022-05-28] MEDS: Fentanyl CADD 100 ML IV SCH (20:37)
[2022-05-29] MEDS: Acetaminophen 500 MG TAB PO SCH ×4 (02:17→20:24)
[2022-05-29] MEDS ORDERED: Furosemide 20 MG/2 ML VIAL SLOW IVP SCH (04:30)
[2022-05-29] MEDS: Piperacillin/Tazobactam 3.375 GM in Sodium Chloride 0.9% 100 ML IVPB SCH ×3 (04:30→20:35)
[2022-05-29] MEDS: Insulin Regular 300 UNITS/3 ML VIAL SC PRN (04:36)
[2022-05-29 04:57] LABS: Anion Gap 10 mmol/L (10-20); BUN (Urea Nitrogen) 79 mg/dL (8.4-25.7); Band 19 % (5-11); Calc. Creatinine Clearance 55 mL/min (70-130); Calcium 8.4 mg/dL (7.8-10.44); Carbon Dioxide 27 mmol/L (23-31); Chloride 110 mmol/L (98-107); Estimated GFR 80; Glucose 235 mg/dL (83-110); Hemoglobin 9.6 g/dL (14.0-18.0); Hypochromia SLIGHT = 6-15 cells (100X) (0-5/hpf); Lymphocytes 8 % (21-51); MDiff Complete? YES; Magnesium 3.1 mg/dL (1.6-2.6); Mean Corpuscular HGB CONC 32.8 g/dL (32.0-36.0); Mean Corpuscular Hemoglobin 31.1 pg (27.0-31.0); Mean Corpuscular Volume 94.8 fl (78.0-98.0); Mean Platelet Volume 8.1 fL (7.4-10.4); Monocytes 3 % (0-10); Neutrophil 70 % (42-75); Phosphorus 4.1 mg/dL (2.3-4.7); Platelet Count 139 10x3/uL (130-400); Platelet Morphology Comment Appears Adequate; Potassium 4.3 mmol/L (3.5-5.1); RBC Distribution Width 13.2 % (11.5-14.5); Red Blood Cell (RBC) Count 3.08 mill/uL (4.70-6.10); Sodium 143 mmol/L (136-145); White Blood Cell (WBC) Count 11.3 10x3/uL (4.8-10.8)
[2022-05-29] MEDS: Hydrocortisone Sod Succ/PF 100 mg/2 ml Vial IVP SCH ×3 (05:54→17:07)
[2022-05-29] MEDS: Ipratropium/Albuterol 3 ML NEB NEB SCH ×4 (06:53→23:50)
[2022-05-29 08:05] LABS: Analyzer IN Cardio ER; Base Excess (BEa) -0.6 mEq/L (-2.0 to +3.0); CO2 Tension 39.6 mmHg (35.0-45.0); Calcium, Ionized (arterial) 1.16 mmol/L (1.12-1.30); Carboxyhemoglobin (COHb) 0.5 gm% (0.0-3.0); Hemoglobin (Hb) 10.8 g/dL (14.0-18.0); Potassium - ABG Lab 4.41 mmol/L (3.70-5.30)
[2022-05-29 08:09] LABS: O2 Tension (PaO2), arterial 56.3 mmHg (> 70.0); Puncture Site Arterial Line
[2022-05-29] MEDS: Saccharomyces boulardii 250 MG CAP PO SCH (08:57)
[2022-05-29] MEDS: Apixaban 5 MG TAB PER TUBE SCH ×2 (08:58→20:36)
[2022-05-29] MEDS: Aspirin 81 mg Enteric Coated Tablet PO SCH (08:58)
[2022-05-29] MEDS: Tamsulosin HCl 0.4 MG CAP PO SCH (08:59)
[2022-05-29] MEDS: Polyethylene Glycol 3350 17 GM Packet PO SCH (08:59)
[2022-05-29] MEDS: Famotidine 20 MG TAB PO SCH (08:59)
[2022-05-29] MEDS: Senokot S 8.6-50 MG TAB PO SCH ×2 (09:00→20:36)
[2022-05-29] MEDS: Sodium Chloride 0.9% 1,000 ML IV SCH (11:19)
[2022-05-29] MEDS ORDERED: carBAMazepine 200 MG TAB PER TUBE SCH (12:00)
[2022-05-29] MEDS: Amiodarone 450 MG in Dextrose 5% in Water 250 ML IVPB SCH (12:24)
[2022-05-29] MEDS: Melatonin 3 MG TAB PO SCH (20:36)
[2022-05-29] MEDS: Midazolam HCl 2 mg/2 ml Vial SLOW IVP PRN (21:13)
[2022-05-30] MEDS: Hydrocortisone Sod Succ/PF 100 mg/2 ml Vial IVP SCH ×5 (00:27→23:01)
[2022-05-30] MEDS ORDERED: Sodium Chloride 0.9% 500 ML IV SCH (00:30)
[2022-05-30] MEDS: Midazolam HCl 2 mg/2 ml Vial SLOW IVP PRN ×3 (00:33→06:13)
[2022-05-30] MEDS: Acetaminophen 500 MG TAB PO SCH ×4 (01:36→20:09)
[2022-05-30] MEDS: Fentanyl CADD 100 ML IV SCH (03:11)
[2022-05-30] MEDS: Amiodarone 450 MG in Dextrose 5% in Water 250 ML IVPB SCH ×2 (04:24→18:39)
[2022-05-30] MEDS: Piperacillin/Tazobactam 3.375 GM in Sodium Chloride 0.9% 100 ML IVPB SCH ×3 (05:37→20:10)
[2022-05-30] MEDS: Ipratropium/Albuterol 3 ML NEB NEB SCH ×3 (06:52→18:25)
[2022-05-30 07:23] LABS: Actual Bicarbonate (HCO3a) 24.3 mEq/L (22-28); Base Excess (BEa) 0.5 mEq/L (-2.0 to +3.0); Calcium, Ionized (arterial) 1.14 mmol/L (1.12-1.30); Hemoglobin (Hb) 10.7 g/dL (14.0-18.0); O2 Tension (PaO2), arterial 93.2 mmHg (> 70.0); Potassium - ABG Lab 4.18 mmol/L (3.70-5.30); pH, Arterial 7.45 (7.35-7.45)
[2022-05-30 07:28] LABS: Puncture Site Arterial Line
[2022-05-30 08:14] LABS: Anion Gap 12 mmol/L (10-20); BUN (Urea Nitrogen) 85 mg/dL (8.4-25.7); Calc. Creatinine Clearance 48 mL/min (70-130); Calcium 7.9 mg/dL (7.8-10.44); Carbon Dioxide 25 mmol/L (23-31); Chloride 112 mmol/L (98-107); Estimated GFR 63; Glucose 257 mg/dL (83-110); Magnesium 3.1 mg/dL (1.6-2.6); Phosphorus 4.4 mg/dL (2.3-4.7); Potassium 4.4 mmol/L (3.5-5.1); Sodium 145 mmol/L (136-145)
[2022-05-30 08:28] LABS: Hemoglobin 9.1 g/dL (14.0-18.0); Mean Corpuscular HGB CONC 32.3 g/dL (32.0-36.0); Mean Corpuscular Hemoglobin 30.8 pg (27.0-31.0); Mean Corpuscular Volume 95.3 fl (78.0-98.0); Mean Platelet Volume 8.1 fL (7.4-10.4); Platelet Count 152 10x3/uL (130-400); RBC Distribution Width 13.2 % (11.5-14.5); Red Blood Cell (RBC) Count 2.94 mill/uL (4.70-6.10); White Blood Cell (WBC) Count 12.1 10x3/uL (4.8-10.8)
[2022-05-30] MEDS: Famotidine/PF 20 mg/2ml Vial SLOW IVP SCH ×2 (09:01→20:09)
[2022-05-30] MEDS: Apixaban 5 MG TAB PER TUBE SCH ×2 (09:01→20:10)
[2022-05-30] MEDS: Aspirin Chewable 81 MG TAB PO SCH (09:01)
[2022-05-30] MEDS: Saccharomyces boulardii 250 MG CAP PO SCH (09:02)
[2022-05-30] MEDS: Polyethylene Glycol 3350 17 GM Packet PO SCH (09:02)
[2022-05-30] MEDS: Senokot S 8.6-50 MG TAB PO SCH ×2 (09:02→20:12)
[2022-05-30] MEDS: Tamsulosin HCl 0.4 MG CAP PO SCH (09:03)
[2022-05-30] MEDS: Insulin Regular 300 UNITS/3 ML VIAL SC PRN ×2 (10:29→16:11)
[2022-05-30 11:33] LABS: Band 1 % (5-11); Eosinophils 1 % (0-10); Hypochromia SLIGHT = 6-15 cells (100X) (0-5/hpf); Lymphocytes 5 % (21-51); MDiff Complete? YES; Monocytes 3 % (0-10); Neutrophil 90 % (42-75); Platelet Morphology Comment Appears Adequate; Polychromasia SLIGHT = 2-3 cells (100X) (0-2/hpf)
[2022-05-30] MEDS: Sodium Chloride 0.9% 1,000 ML IV SCH (12:00)
[2022-05-30] MEDS: Melatonin 3 MG TAB PO SCH (20:10)
[2022-05-31] MEDS: Ipratropium/Albuterol 3 ML NEB NEB SCH ×5 (00:42→23:19)
[2022-05-31] MEDS: Acetaminophen 500 MG TAB PO SCH ×4 (01:04→21:05)
[2022-05-31] MEDS: Piperacillin/Tazobactam 3.375 GM in Sodium Chloride 0.9% 100 ML IVPB SCH ×3 (04:08→21:08)
[2022-05-31 05:00] LABS: Hemoglobin 8.2 g/dL (14.0-18.0); Mean Corpuscular HGB CONC 31.7 g/dL (32.0-36.0); Mean Corpuscular Hemoglobin 30.4 pg (27.0-31.0); Mean Corpuscular Volume 95.9 fl (78.0-98.0); Mean Platelet Volume 7.8 fL (7.4-10.4); Platelet Count 162 10x3/uL (130-400); RBC Distribution Width 13.2 % (11.5-14.5); Red Blood Cell (RBC) Count 2.71 mill/uL (4.70-6.10); White Blood Cell (WBC) Count 15.5 10x3/uL (4.8-10.8)
[2022-05-31] MEDS: Hydrocortisone Sod Succ/PF 100 mg/2 ml Vial IVP SCH (05:01)
[2022-05-31 05:02] LABS: Anion Gap 10 mmol/L (10-20); BUN (Urea Nitrogen) 76 mg/dL (8.4-25.7); Calc. Creatinine Clearance 47 mL/min (70-130); Calcium 8.1 mg/dL (7.8-10.44); Carbon Dioxide 29 mmol/L (23-31); Chloride 113 mmol/L (98-107); Estimated GFR 63; Glucose 258 mg/dL (83-110); Phosphorus 3.6 mg/dL (2.3-4.7); Potassium 3.8 mmol/L (3.5-5.1); Sodium 148 mmol/L (136-145)
[2022-05-31] MEDS: Insulin Regular 300 UNITS/3 ML VIAL SC PRN ×3 (05:11→22:27)
[2022-05-31 05:40] LABS: Band 15 % (5-11); Hypochromia SLIGHT = 6-15 cells (100X) (0-5/hpf); Lymphocytes 9 % (21-51); MDiff Complete? YES; Neutrophil 76 % (42-75); Platelet Morphology Comment Appears Adequate
[2022-05-31] MEDS ORDERED: Potassium Phosphate 15 MMOL in Sodium Chloride 0.9% 250 ML 250 ML IVPB SCH (07:30)
[2022-05-31] MEDS ORDERED: Midazolam HCl 2 mg/2 ml Vial ONE (08:34)
[2022-05-31] MEDS: Apixaban 5 MG TAB PER TUBE SCH ×2 (10:08→21:07)
[2022-05-31] MEDS: Saccharomyces boulardii 250 MG CAP PO SCH (10:09)
[2022-05-31] MEDS: Aspirin Chewable 81 MG TAB PO SCH (10:09)
[2022-05-31] MEDS: Senokot S 8.6-50 MG TAB PO SCH ×2 (10:09→21:08)
[2022-05-31] MEDS: Tamsulosin HCl 0.4 MG CAP PO SCH (10:09)
[2022-05-31] MEDS: Famotidine/PF 20 mg/2ml Vial SLOW IVP SCH ×2 (10:10→21:08)
[2022-05-31] MEDS: Polyethylene Glycol 3350 17 GM Packet PO SCH (10:10)
[2022-05-31] MEDS: Amiodarone 450 MG in Dextrose 5% in Water 250 ML IVPB SCH ×2 (10:10→23:31)
[2022-05-31] MEDS ORDERED: Midazolam HCl 2 mg/2 ml Vial IVP SCH (10:45)
[2022-05-31] MEDS: methylPREDNISolone Sod Succ 40 MG VIAL IVP SCH ×3 (12:55→23:31)
[2022-05-31] MEDS: Sodium Chloride 0.9% 1,000 ML IV SCH (12:56)
[2022-05-31] MEDS: Furosemide 40 MG/4 ML VIAL SLOW IVP SCH (14:39)
[2022-05-31] MEDS ORDERED: Potassium Chloride 40 MEQ in Premix Bag 1 BAG IVPB SCH (18:00)
[2022-05-31] MEDS: Melatonin 3 MG TAB PO SCH (21:07)
[2022-06-01] MEDS: Acetaminophen 500 MG TAB PO SCH ×2 (01:50→08:11)
[2022-06-01 04:38] LABS: #Lymphocytes 0.2 thou/uL (1.20-3.40); #Monocytes 0.2 thou/uL (0.11-0.59); %Eosinophils 0.2 % (0.0-10.0); %Lymphocytes 3.1 % (21.0-51.0); %Monocytes 2.3 % (0.0-10.0); %Neutrophils 94.4 % (42.0-75.0); Hemoglobin 8.2 g/dL (14.0-18.0); Mean Corpuscular HGB CONC 31.3 g/dL (32.0-36.0); Mean Corpuscular Hemoglobin 30.2 pg (27.0-31.0); Mean Corpuscular Volume 96.5 fl (78.0-98.0); Mean Platelet Volume 8.3 fL (7.4-10.4); Platelet Count 162 10x3/uL (130-400); RBC Distribution Width 13.5 % (11.5-14.5); White Blood Cell (WBC) Count 7.4 10x3/uL (4.8-10.8)
[2022-06-01 04:58] LABS: ALT (SGPT) 35 U/L (8-55); AST (SGOT) 37 U/L (5-34); Albumin 2.6 g/dL (3.4-4.8); Alkaline Phosphatase 162 U/L (40-110); Anion Gap 10 mmol/L (10-20); BUN (Urea Nitrogen) 67 mg/dL (8.4-25.7); Bilirubin, Total 3.2 mg/dL (0.2-1.2); Calc. Creatinine Clearance 48 mL/min (70-130); Calcium 8.2 mg/dL (7.8-10.44); Carbon Dioxide 30 mmol/L (23-31); Chloride 115 mmol/L (98-107); Estimated GFR 65; Globulin 2.5 g/dL (2.4-3.5); Glucose 332 mg/dL (83-110); Magnesium 2.8 mg/dL (1.6-2.6); Phosphorus 3.6 mg/dL (2.3-4.7); Potassium 4.5 mmol/L (3.5-5.1); Protein, Total 5.1 g/dL (5.8-8.1); Sodium 150 mmol/L (136-145)
[2022-06-01] MEDS: Furosemide 40 MG/4 ML VIAL SLOW IVP SCH ×2 (05:22→13:49)
[2022-06-01] MEDS: Piperacillin/Tazobactam 3.375 GM in Sodium Chloride 0.9% 100 ML IVPB SCH ×3 (05:22→21:04)
[2022-06-01] MEDS: Insulin Regular 300 UNITS/3 ML VIAL SC PRN ×3 (05:23→18:29)
[2022-06-01] MEDS: methylPREDNISolone Sod Succ 40 MG VIAL IVP SCH ×3 (05:23→18:28)
[2022-06-01] MEDS: Fentanyl CADD 100 ML IV SCH (06:35)
[2022-06-01] MEDS: Ipratropium/Albuterol 3 ML NEB NEB SCH ×4 (06:44→23:01)
[2022-06-01] MEDS: Polyethylene Glycol 3350 17 GM Packet PO SCH (08:10)
[2022-06-01] MEDS: Apixaban 5 MG TAB PER TUBE SCH (08:10)
[2022-06-01] MEDS: Famotidine/PF 20 mg/2ml Vial SLOW IVP SCH (08:12)
[2022-06-01] MEDS: Aspirin Chewable 81 MG TAB PO SCH (08:12)
[2022-06-01] MEDS: Saccharomyces boulardii 250 MG CAP PO SCH (08:12)
[2022-06-01] MEDS: Tamsulosin HCl 0.4 MG CAP PO SCH (08:12)
[2022-06-01] MEDS: Insulin Glargine 30 UNITS/0.3 ML VIAL SC SCH (08:20)
[2022-06-01] MEDS ORDERED: Amiodarone 200 MG TAB PO SCH (09:45)
[2022-06-01] MEDS ORDERED: Lisinopril 10 MG TAB PO SCH ×2 (09:45→21:00)
[2022-06-01] MEDS ORDERED: Acetaminophen/Codeine 30-300mg Tablet PO PRN ×2 (09:51)
[2022-06-01] MEDS ORDERED: CEFAZOLIN 2 GM in Sodium Chloride 0.9% 100 ML IVPB SCH (10:45)
[2022-06-01] MEDS: Sodium Chloride 0.9% 1,000 ML IV SCH (10:53)
[2022-06-01] MEDS: Senokot S 8.6-50 MG TAB PO SCH ×2 (10:53→21:07)
[2022-06-01] MEDS: Acetaminophen 325 MG TAB PO SCH ×2 (13:49→21:05)
[2022-06-01] MEDS: Amiodarone 200 MG TAB PO SCH ×2 (14:06→21:08)
[2022-06-01] MEDS ORDERED: Midazolam HCl 2 mg/2 ml Vial SLOW IVP PRN (14:24)
[2022-06-01] MEDS ORDERED: Propofol BOLUS 1,000 MG/100 ML VIAL IV PRN (14:30)
[2022-06-01] MEDS ORDERED: Propofol 1,000 MG/100 ML VIAL IV PRN (14:30)
[2022-06-01] MEDS ORDERED: Fentanyl 100 MCG/2 ML VIAL SLOW IVP SCH (14:30)
[2022-06-01] MEDS ORDERED: Morphine 4 MG/ML VIAL SLOW IVP PRN (14:30)
[2022-06-01] MEDS ORDERED: DISCONTINUE PREVIOUS NARCOTIC PAIN MEDICATIONS AND BENZODIAZEPINES FS SCH (14:30)
[2022-06-01] MEDS ORDERED: Fentanyl CADD 100 ML ONE (16:26)
[2022-06-01] MEDS: Ventilator Sedation Protocol 1 EACH FS SCH (18:29)
[2022-06-01] MEDS ORDERED: Fentanyl CADD 100 ML IV SCH (18:30)
[2022-06-01] MEDS: Melatonin 3 MG TAB PO SCH (21:06)
[2022-06-02] MEDS: Acetaminophen 325 MG TAB PO SCH ×4 (04:00→20:26)
[2022-06-02] MEDS: methylPREDNISolone Sod Succ 40 MG VIAL IVP SCH ×2 (04:00→10:09)
[2022-06-02] MEDS: Insulin Regular 300 UNITS/3 ML VIAL SC PRN ×3 (04:06→20:15)
[2022-06-02 04:22] LABS: Hemoglobin 4.8 g/dL (14.0-18.0); Mean Corpuscular HGB CONC 31.5 g/dL (32.0-36.0); Mean Corpuscular Hemoglobin 30.4 pg (27.0-31.0); Mean Corpuscular Volume 96.5 fl (78.0-98.0); Platelet Count 132 10x3/uL (130-400); RBC Distribution Width 13.3 % (11.5-14.5); Red Blood Cell (RBC) Count 1.58 mill/uL (4.70-6.10)
[2022-06-02 04:31] LABS: INR-International Normal Ratio 3.7; PTT 48.5 sec (22.9-36.1); Prothrombin Time 38.4 sec (12.0-14.7)
[2022-06-02 04:41] LABS: Anion Gap 11 mmol/L (10-20); BUN (Urea Nitrogen) 86 mg/dL (8.4-25.7); Calc. Creatinine Clearance 30 mL/min (70-130); Calcium 7.4 mg/dL (7.8-10.44); Carbon Dioxide 29 mmol/L (23-31); Chloride 116 mmol/L (98-107); Estimated GFR 41; Glucose 247 mg/dL (83-110); Magnesium 2.5 mg/dL (1.6-2.6); Potassium 4.1 mmol/L (3.5-5.1)
[2022-06-02] MEDS: Piperacillin/Tazobactam 3.375 GM in Sodium Chloride 0.9% 100 ML IVPB SCH (05:07)
[2022-06-02] MEDS: Furosemide 40 MG/4 ML VIAL SLOW IVP SCH (05:08)
[2022-06-02 05:19] LABS: Phosphorus 4.4 mg/dL (2.3-4.7)
[2022-06-02 05:32] LABS: Hemoglobin 4.9 g/dL (14.0-18.0)
[2022-06-02 05:36] LABS: Band 2 % (5-11); Hypochromia SLIGHT = 6-15 cells (100X) (0-5/hpf); Lymphocytes 18 % (21-51); MDiff Complete? YES; Monocytes 2 % (0-10); Neutrophil 78 % (42-75); Platelet Morphology Comment Appears Adequate; White Blood Cell (WBC) Count 9.8 10x3/uL (4.8-10.8)
[2022-06-02 06:05] LABS: Sodium 152 mmol/L (136-145)
[2022-06-02] MEDS: Ipratropium/Albuterol 3 ML NEB NEB SCH ×4 (07:02→22:26)
[2022-06-02] MEDS: Famotidine/PF 20 mg/2ml Vial SLOW IVP SCH (09:29)
[2022-06-02] MEDS ORDERED: Furosemide 40 MG/4 ML VIAL SLOW IVP SCH (09:45)
[2022-06-02] MEDS: Amiodarone 200 MG TAB PO SCH ×3 (09:55→20:26)
[2022-06-02] MEDS: Tamsulosin HCl 0.4 MG CAP PO SCH (09:55)
[2022-06-02] MEDS: Saccharomyces boulardii 250 MG CAP PO SCH (09:56)
[2022-06-02] MEDS: Ventilator Sedation Protocol 1 EACH FS SCH (09:57)
[2022-06-02] MEDS: Insulin Glargine 30 UNITS/0.3 ML VIAL SC SCH (10:04)
[2022-06-02] MEDS: Polyethylene Glycol 3350 17 GM Packet PO SCH (10:05)
[2022-06-02] MEDS: Senokot S 8.6-50 MG TAB PO SCH ×2 (10:05→20:18)
[2022-06-02] MEDS ORDERED: Lidocaine 1% (PF) 30 ML VIAL ONE (10:05)
[2022-06-02 10:29] LABS: #Lymphocytes 0.9 thou/uL (1.20-3.40); #Monocytes 0.2 thou/uL (0.11-0.59); #Neutrophils 11.7 thou/uL (1.40-6.50); %Basophils 0.1 % (0.0-1.0); %Monocytes 1.7 % (0.0-10.0); %Neutrophils 91.3 % (42.0-75.0); Hemoglobin 9.7 g/dL (14.0-18.0); Mean Corpuscular HGB CONC 32.3 g/dL (32.0-36.0); Mean Corpuscular Hemoglobin 29.9 pg (27.0-31.0); Mean Corpuscular Volume 92.4 fl (78.0-98.0); Mean Platelet Volume 8.1 fL (7.4-10.4); Platelet Count 174 10x3/uL (130-400); RBC Distribution Width 13.5 % (11.5-14.5); Red Blood Cell (RBC) Count 3.24 mill/uL (4.70-6.10); White Blood Cell (WBC) Count 12.9 10x3/uL (4.8-10.8)
[2022-06-02] MEDS: Piperacillin/Tazobactam 3.375 GM in Dextrose 5% in Water 100 ML IVPB SCH ×2 (13:32→20:36)
[2022-06-02] MEDS: Sodium Chloride 0.9% 1,000 ML IV SCH (13:33)
[2022-06-02] MEDS ORDERED: Acetaminophen/Codeine 30-300mg Tablet PO PRN (16:57)
[2022-06-02 17:17] LABS: #Lymphocytes 0.6 thou/uL (1.20-3.40); #Monocytes 0.4 thou/uL (0.11-0.59); #Neutrophils 9.4 thou/uL (1.40-6.50); %Monocytes 3.4 % (0.0-10.0); %Neutrophils 90.6 % (42.0-75.0); Hemoglobin 8.7 g/dL (14.0-18.0); Mean Corpuscular HGB CONC 32.7 g/dL (32.0-36.0); Mean Corpuscular Hemoglobin 30.3 pg (27.0-31.0); Mean Corpuscular Volume 92.6 fl (78.0-98.0); Mean Platelet Volume 8.3 fL (7.4-10.4); Platelet Count 143 10x3/uL (130-400); RBC Distribution Width 13.7 % (11.5-14.5); Red Blood Cell (RBC) Count 2.86 mill/uL (4.70-6.10); White Blood Cell (WBC) Count 10.4 10x3/uL (4.8-10.8)
[2022-06-02] MEDS: Morphine 2 MG/ML VIAL SLOW IVP PRN (17:34)
[2022-06-02 17:39] LABS: Anion Gap 10 mmol/L (10-20); BUN (Urea Nitrogen) 79 mg/dL (8.4-25.7); Calc. Creatinine Clearance 35 mL/min (70-130); Calcium 7.8 mg/dL (7.8-10.44); Carbon Dioxide 31 mmol/L (23-31); Chloride 114 mmol/L (98-107); Estimated GFR 49; Glucose 186 mg/dL (83-110); Magnesium 2.4 mg/dL (1.6-2.6); Phosphorus 4.3 mg/dL (2.3-4.7); Potassium 3.9 mmol/L (3.5-5.1)
[2022-06-02 17:41] LABS: Glucose 176 mg/dL (83-110)
[2022-06-02 17:48] LABS: Sodium 151 mmol/L (136-145)
[2022-06-02 17:55] LABS: Platelet Count 143 10x3/uL (130-400)
[2022-06-02] MEDS: Melatonin 3 MG TAB PO SCH (20:26)
[2022-06-02] MEDS: Acetaminophen/Codeine 30-300mg Tablet PO PRN (22:40)
[2022-06-03] MEDS: Acetaminophen 325 MG TAB PO SCH ×4 (02:13→20:17)
[2022-06-03] MEDS: Morphine 2 MG/ML VIAL SLOW IVP PRN (02:21)
[2022-06-03 03:58] LABS: PTT 35.5 sec (22.9-36.1); Prothrombin Time 23.2 sec (12.0-14.7)
[2022-06-03 04:03] LABS: ALT (SGPT) 23 U/L (8-55); AST (SGOT) 25 U/L (5-34); Albumin 2.2 g/dL (3.4-4.8); Alkaline Phosphatase 156 U/L (40-110); Anion Gap 11 mmol/L (10-20); BUN (Urea Nitrogen) 82 mg/dL (8.4-25.7); Bilirubin, Total 1.3 mg/dL (0.2-1.2); Calc. Creatinine Clearance 39 mL/min (70-130); Calcium 7.6 mg/dL (7.8-10.44); Carbon Dioxide 31 mmol/L (23-31); Chloride 116 mmol/L (98-107); Estimated GFR 56; Globulin 1.8 g/dL (2.4-3.5); Glucose 169 mg/dL (83-110); Phosphorus 3.7 mg/dL (2.3-4.7); Potassium 3.6 mmol/L (3.5-5.1)
[2022-06-03 04:05] LABS: Anion Gap 10 mmol/L (10-20); BUN (Urea Nitrogen) 81 mg/dL (8.4-25.7); Calc. Creatinine Clearance 40 mL/min (70-130); Calcium 7.5 mg/dL (7.8-10.44); Carbon Dioxide 31 mmol/L (23-31); Chloride 117 mmol/L (98-107); Estimated GFR 57; Glucose 167 mg/dL (83-110); Magnesium 2.4 mg/dL (1.6-2.6); Potassium 3.6 mmol/L (3.5-5.1)
[2022-06-03 04:22] LABS: Sodium 154 mmol/L (136-145)
[2022-06-03 04:23] LABS: Sodium 154 mmol/L (136-145)
[2022-06-03 05:08] LABS: Band 10 % (5-11); Hemoglobin 7.8 g/dL (14.0-18.0); Lymphocytes 11 % (21-51); MDiff Complete? YES; Mean Corpuscular HGB CONC 32.6 g/dL (32.0-36.0); Mean Corpuscular Hemoglobin 30.3 pg (27.0-31.0); Mean Platelet Volume 8.1 fL (7.4-10.4); Neutrophil 79 % (42-75); Platelet Count 139 10x3/uL (130-400); Red Blood Cell (RBC) Count 2.56 mill/uL (4.70-6.10); White Blood Cell (WBC) Count 10.3 10x3/uL (4.8-10.8)
[2022-06-03] MEDS: Piperacillin/Tazobactam 3.375 GM in Dextrose 5% in Water 100 ML IVPB SCH (05:14)
[2022-06-03] MEDS ORDERED: Potassium Chloride 20 MEQ TAB PO SCH ×2 (07:00→13:30)
[2022-06-03] MEDS: Ipratropium/Albuterol 3 ML NEB NEB SCH ×4 (07:02→21:55)
[2022-06-03] MEDS: Amiodarone 200 MG TAB PO SCH ×3 (08:26→20:17)
[2022-06-03] MEDS: Polyethylene Glycol 3350 17 GM Packet PO SCH (08:26)
[2022-06-03] MEDS: Saccharomyces boulardii 250 MG CAP PO SCH (08:26)
[2022-06-03] MEDS: Senokot S 8.6-50 MG TAB PO SCH ×2 (08:27→20:17)
[2022-06-03] MEDS: Tamsulosin HCl 0.4 MG CAP PO SCH (08:27)
[2022-06-03] MEDS: Famotidine/PF 20 mg/2ml Vial SLOW IVP SCH (08:28)
[2022-06-03] MEDS ORDERED: Iopamidol 370 76% 50 ML VIAL FS ONE (09:15)
[2022-06-03] MEDS: Insulin Glargine 30 UNITS/0.3 ML VIAL SC SCH (10:57)
[2022-06-03] MEDS: Ventilator Sedation Protocol 1 EACH FS SCH (10:57)
[2022-06-03] MEDS ORDERED: Saccharomyces boulardii 250 MG CAP PO SCH (13:30)
[2022-06-03] MEDS ORDERED: Tamsulosin HCl 0.4 MG CAP PO SCH (13:30)
[2022-06-03] MEDS: Lactated Ringer's 1,000 ML IV SCH (13:50)
[2022-06-03] MEDS: Vancomycin 1 GM in Premix Bag 1 BAG IVPB SCH (14:15)
[2022-06-03 15:45] LABS: Hemoglobin 7.7 g/dL (14.0-18.0); Mean Corpuscular HGB CONC 32.3 g/dL (32.0-36.0); Mean Corpuscular Hemoglobin 30.3 pg (27.0-31.0); Mean Platelet Volume 8.2 fL (7.4-10.4); Platelet Count 136 10x3/uL (130-400); RBC Distribution Width 13.9 % (11.5-14.5); Red Blood Cell (RBC) Count 2.55 mill/uL (4.70-6.10); White Blood Cell (WBC) Count 13.2 10x3/uL (4.8-10.8)
[2022-06-03 15:51] LABS: Anion Gap 7 mmol/L (10-20); BUN (Urea Nitrogen) 80 mg/dL (8.4-25.7); Calc. Creatinine Clearance 45 mL/min (70-130); Calcium 7.8 mg/dL (7.8-10.44); Carbon Dioxide 34 mmol/L (23-31); Chloride 116 mmol/L (98-107); Estimated GFR 66; Glucose 131 mg/dL (83-110); Magnesium 2.4 mg/dL (1.6-2.6); Phosphorus 3.7 mg/dL (2.3-4.7); Potassium 3.3 mmol/L (3.5-5.1)
[2022-06-03 16:02] LABS: Sodium 154 mmol/L (136-145)
[2022-06-03 16:30] LABS: Band 10 % (5-11); Lymphocytes 2 % (21-51); MDiff Complete? YES; Monocytes 3 % (0-10); Neutrophil 80 % (42-75); Platelet Morphology Comment Appears Adequate; RBC Morphology Normal; Reactive Lymphocytes 5 % (0-10)
[2022-06-03] MEDS ORDERED: Potassium Phosphate 30 MMOL in Sodium Chloride 0.9% 250 ML 250 ML IVPB SCH (17:15)
[2022-06-03] MEDS: CEFEPIME IVPB SCH (17:28)
[2022-06-03] MEDS: WATER IVPB SCH (17:28)
[2022-06-03] MEDS: ADMIXTURE FEE IVPB SCH (17:28)
[2022-06-03] MEDS: DEXTROSE IVPB SCH (17:28)
[2022-06-03] MEDS: Melatonin 3 MG TAB PO SCH (20:17)
[2022-06-03] MEDS: Insulin Regular 300 UNITS/3 ML VIAL SC PRN (20:36)
[2022-06-03] MEDS ORDERED: Vancomycin HCl 1 GM in Sodium Chloride 0.9% 250 ML 300 ML IVPB SCH (21:00)
[2022-06-04] MEDS: Acetaminophen 325 MG TAB PO SCH ×4 (02:49→20:31)
[2022-06-04 05:01] LABS: Hemoglobin 8.7 g/dL (14.0-18.0); Mean Corpuscular HGB CONC 32.2 g/dL (32.0-36.0); Mean Corpuscular Hemoglobin 29.4 pg (27.0-31.0); Mean Corpuscular Volume 91.2 fl (78.0-98.0); Mean Platelet Volume 8.1 fL (7.4-10.4); Platelet Count 120 10x3/uL (130-400); RBC Distribution Width 14.7 % (11.5-14.5); Red Blood Cell (RBC) Count 2.94 mill/uL (4.70-6.10); White Blood Cell (WBC) Count 12.3 10x3/uL (4.8-10.8)
[2022-06-04 05:05] LABS: INR-International Normal Ratio 2.5; PTT 37.8 sec (22.9-36.1); Prothrombin Time 28.3 sec (12.0-14.7)
[2022-06-04 05:17] LABS: Anion Gap 9 mmol/L (10-20); BUN (Urea Nitrogen) 87 mg/dL (8.4-25.7); Calc. Creatinine Clearance 48 mL/min (70-130); Calcium 7.5 mg/dL (7.8-10.44); Carbon Dioxide 31 mmol/L (23-31); Chloride 116 mmol/L (98-107); Estimated GFR 68; Glucose 259 mg/dL (83-110); Magnesium 2.3 mg/dL (1.6-2.6); Potassium 4.1 mmol/L (3.5-5.1)
[2022-06-04 05:20] LABS: Band 3 % (5-11); Lymphocytes 3 % (21-51); MDiff Complete? YES; Neutrophil 94 % (42-75); Toxic Granulation SLIGHT
[2022-06-04] MEDS: CEFEPIME IVPB SCH ×2 (05:20→17:14)
[2022-06-04] MEDS: ADMIXTURE FEE IVPB SCH ×2 (05:20→17:14)
[2022-06-04] MEDS: Insulin Regular 300 UNITS/3 ML VIAL SC PRN ×4 (05:20→20:34)
[2022-06-04] MEDS: WATER IVPB SCH ×2 (05:20→17:14)
[2022-06-04] MEDS: DEXTROSE IVPB SCH ×2 (05:20→17:14)
[2022-06-04 05:59] LABS: Sodium 152 mmol/L (136-145)
[2022-06-04 06:33] LABS: Phosphorus 4.7 mg/dL (2.3-4.7)
[2022-06-04] MEDS: Ipratropium/Albuterol 3 ML NEB NEB SCH ×4 (06:40→22:22)
[2022-06-04] MEDS: Insulin Glargine 30 UNITS/0.3 ML VIAL SC SCH (08:50)
[2022-06-04] MEDS: Famotidine/PF 20 mg/2ml Vial SLOW IVP SCH (08:50)
[2022-06-04] MEDS: Saccharomyces boulardii 250 MG CAP PO SCH (08:50)
[2022-06-04] MEDS: Tamsulosin HCl 0.4 MG CAP PO SCH (08:50)
[2022-06-04] MEDS: Senokot S 8.6-50 MG TAB PO SCH ×2 (08:58→20:33)
[2022-06-04] MEDS: Lactated Ringer's 1,000 ML IV SCH (08:59)
[2022-06-04] MEDS: Acetaminophen/Codeine 30-300mg Tablet PO PRN (09:11)
[2022-06-04] MEDS: Polyethylene Glycol 3350 17 GM Packet PO SCH (10:05)
[2022-06-04] MEDS: Amiodarone 200 MG TAB PO SCH ×2 (10:32→20:31)
[2022-06-04] MEDS ORDERED: Furosemide 20 MG/2 ML VIAL SLOW IVP SCH (10:45)
[2022-06-04] MEDS: carBAMazepine 100 mg Chewable Tablet PO SCH ×2 (12:50→17:15)
[2022-06-04] MEDS ORDERED: Potassium Chloride 20 MEQ TAB PO SCH (14:00)
[2022-06-04] MEDS: Vancomycin 1 GM in Premix Bag 1 BAG IVPB SCH (14:03)
[2022-06-04] MEDS: Melatonin 3 MG TAB PO SCH (20:32)
[2022-06-05] MEDS: Acetaminophen 325 MG TAB PO SCH ×4 (02:16→20:37)
[2022-06-05] MEDS: Insulin Regular 300 UNITS/3 ML VIAL SC PRN ×2 (04:31→07:52)
[2022-06-05] MEDS: Lactated Ringer's 1,000 ML IV SCH (04:39)
[2022-06-05 05:03] LABS: INR-International Normal Ratio 2.6; PTT 42.7 sec (22.9-36.1); Prothrombin Time 29.4 sec (12.0-14.7)
[2022-06-05 05:11] LABS: Phosphorus 4.1 mg/dL (2.3-4.7)
[2022-06-05 05:13] LABS: Anion Gap 9 mmol/L (10-20); BUN (Urea Nitrogen) 87 mg/dL (8.4-25.7); Calc. Creatinine Clearance 57 mL/min (70-130); Calcium 7.7 mg/dL (7.8-10.44); Carbon Dioxide 31 mmol/L (23-31); Chloride 115 mmol/L (98-107); Estimated GFR 85; Glucose 184 mg/dL (83-110); Magnesium 2.3 mg/dL (1.6-2.6); Potassium 4.3 mmol/L (3.5-5.1)
[2022-06-05 05:18] LABS: Sodium 151 mmol/L (136-145)
[2022-06-05] MEDS: ADMIXTURE FEE IVPB SCH ×2 (05:40→17:52)
[2022-06-05] MEDS: DEXTROSE IVPB SCH ×2 (05:40→17:52)
[2022-06-05] MEDS: WATER IVPB SCH ×2 (05:40→17:52)
[2022-06-05] MEDS: CEFEPIME IVPB SCH ×2 (05:40→17:52)
[2022-06-05 06:28] LABS: Anisocytosis SLIGHT = 6-15 cells (100X) (0-5/hpf); Band 7 % (5-11); Eosinophils 2 % (0-10); Hemoglobin 7.5 g/dL (14.0-18.0); Lymphocytes 5 % (21-51); MDiff Complete? YES; Mean Corpuscular HGB CONC 32.4 g/dL (32.0-36.0); Mean Corpuscular Hemoglobin 30.1 pg (27.0-31.0); Mean Corpuscular Volume 92.8 fl (78.0-98.0); Mean Platelet Volume 8.8 fL (7.4-10.4); Neutrophil 86 % (42-75); Platelet Count 91 10x3/uL (130-400); Platelet Morphology Comment Appears Decreased; RBC Distribution Width 15.2 % (11.5-14.5); Red Blood Cell (RBC) Count 2.49 mill/uL (4.70-6.10); White Blood Cell (WBC) Count 12.5 10x3/uL (4.8-10.8)
[2022-06-05] MEDS: Ipratropium/Albuterol 3 ML NEB NEB SCH ×3 (06:43→18:19)
[2022-06-05] MEDS ORDERED: Sodium Chloride 0.45 % 250 ML BAG IV SCH ×2 (07:45→09:00)
[2022-06-05] MEDS: carBAMazepine 100 mg Chewable Tablet PO SCH ×3 (07:52→14:44)
[2022-06-05] MEDS ORDERED: Sodium Chloride 0.45% 1,000 ML IV SCH ×2 (08:00→09:30)
[2022-06-05] MEDS ORDERED: EPINEPHrine 1 MG/10 ML Abboject SYRINGE ONE (08:30)
[2022-06-05] MEDS ORDERED: Midazolam HCl 2 mg/2 ml Vial SLOW IVP PRN (08:41)
[2022-06-05] MEDS ORDERED: Propofol 1,000 MG/100 ML VIAL IV PRN (08:45)
[2022-06-05] MEDS ORDERED: Ventilator Sedation Protocol 1 EACH FS SCH (08:45)
[2022-06-05] MEDS ORDERED: DISCONTINUE PREVIOUS NARCOTIC PAIN MEDICATIONS AND BENZODIAZEPINES FS SCH (08:45)
[2022-06-05] MEDS ORDERED: Fentanyl BOLUS 250 ML IVPB PRN (08:45)
[2022-06-05] MEDS ORDERED: Propofol BOLUS 1,000 MG/100 ML VIAL IV PRN (08:45)
[2022-06-05] MEDS ORDERED: Fentanyl CADD 100 ML ONE (08:51)
[2022-06-05] MEDS ORDERED: NOREPINEPHRINE 8 MG/250 ML-D5W 250 ML ONE (08:53)
[2022-06-05] MEDS: Midazolam HCl 2 mg/2 ml Vial SLOW IVP PRN ×5 (08:57→23:34)
[2022-06-05 08:58] LABS: Actual Bicarbonate (HCO3a) 28.7 mEq/L (22-28); Base Excess (BEa) 3.3 mEq/L (-2.0 to +3.0); CO2 Tension 48.2 mmHg (35.0-45.0); Calcium, Ionized (arterial) 1.17 mmol/L (1.12-1.30); Carboxyhemoglobin (COHb) 1.4 gm% (0.0-3.0); Hemoglobin (Hb) 8.7 g/dL (14.0-18.0); Potassium - ABG Lab 4.19 mmol/L (3.70-5.30); pH, Arterial 7.39 (7.35-7.45)
[2022-06-05] MEDS: Fentanyl CADD 100 ML IV SCH (08:58)
[2022-06-05] MEDS ORDERED: Morphine 4 MG/ML VIAL SLOW IVP PRN (09:00)
[2022-06-05] MEDS ORDERED: Apixaban 5 MG TAB PO SCH (09:00)
[2022-06-05] MEDS ORDERED: Furosemide 20 MG/2 ML VIAL SLOW IVP SCH (09:00)
[2022-06-05] MEDS ORDERED: Albumin 5% 500 ML ONE (09:06)
[2022-06-05] MEDS ORDERED: NOREPINEPHRINE 8 MG/250 ML-D5W 250 ML IVPB SCH (09:15)
[2022-06-05 09:24] LABS: O2 Tension (PaO2), arterial 43.5 mmHg (> 70.0)
[2022-06-05 09:25] LABS: Puncture Site LRA
[2022-06-05] MEDS: Phytonadione 10 MG in Sodium Chloride 0.9% 50 ML IVPB SCH ×2 (09:29→21:16)
[2022-06-05] MEDS ORDERED: Atracurium 50 MG/5 ML VIAL IV SCH (09:30)
[2022-06-05 09:37] LABS: #Eosinphils 0.2 thou/uL (0.0-0.7); #Lymphocytes 0.4 thou/uL (1.20-3.40); #Monocytes 0.5 thou/uL (0.11-0.59); #Neutrophils 15.6 thou/uL (1.40-6.50); %Basophils 0.1 % (0.0-1.0); %Eosinophils 1.3 % (0.0-10.0); %Lymphocytes 2.2 % (21.0-51.0); %Monocytes 2.8 % (0.0-10.0); %Neutrophils 93.6 % (42.0-75.0); Hemoglobin 7.7 g/dL (14.0-18.0); Mean Corpuscular Hemoglobin 29.7 pg (27.0-31.0); Mean Corpuscular Volume 92.8 fl (78.0-98.0); Mean Platelet Volume 8.7 fL (7.4-10.4); Platelet Count 126 10x3/uL (130-400); RBC Distribution Width 14.8 % (11.5-14.5); Red Blood Cell (RBC) Count 2.58 mill/uL (4.70-6.10); White Blood Cell (WBC) Count 16.7 10x3/uL (4.8-10.8)
[2022-06-05 09:47] LABS: Base Excess (BEa) 4.1 mEq/L (-2.0 to +3.0); CO2 Tension 46.1 mmHg (35.0-45.0); Calcium, Ionized (arterial) 1.13 mmol/L (1.12-1.30); Carboxyhemoglobin (COHb) 1.5 gm% (0.0-3.0); Hemoglobin (Hb) 7.8 g/dL (14.0-18.0); Potassium - ABG Lab 3.95 mmol/L (3.70-5.30); pH, Arterial 7.42 (7.35-7.45)
[2022-06-05 09:50] LABS: O2 Tension (PaO2), arterial 55.3 mmHg (> 70.0); Puncture Site LRA
[2022-06-05 09:51] LABS: ALV-art Gradient 600.075 mmHg (0-20)
[2022-06-05 09:51] LABS: Lactic Acid 1.9 mmol/L (0.5-2.2)
[2022-06-05 09:56] LABS: ALT (SGPT) 28 U/L (8-55); AST (SGOT) 39 U/L (5-34); Albumin 2.1 g/dL (3.4-4.8); Alkaline Phosphatase 276 U/L (40-110); Anion Gap 10 mmol/L (10-20); BUN (Urea Nitrogen) 82 mg/dL (8.4-25.7); Bilirubin, Total 1.2 mg/dL (0.2-1.2); Calc. Creatinine Clearance 64 mL/min (70-130); Calcium 7.6 mg/dL (7.8-10.44); Carbon Dioxide 29 mmol/L (23-31); Chloride 115 mmol/L (98-107); Estimated GFR 89; Globulin 1.7 g/dL (2.4-3.5); Glucose 187 mg/dL (83-110); Magnesium 2.2 mg/dL (1.6-2.6); Potassium 4.2 mmol/L (3.5-5.1); Protein, Total 3.8 g/dL (5.8-8.1); Sodium 150 mmol/L (136-145)
[2022-06-05 09:56] LABS: INR-International Normal Ratio 2.8; PTT 39.6 sec (22.9-36.1); Prothrombin Time 30.3 sec (12.0-14.7)
[2022-06-05 10:00] LABS: Troponin I 0.012 ng/mL (< 0.028)
[2022-06-05] MEDS ORDERED: Vecuronium Bromide 50 MG, Admixture Fee 1 EACH in Sodium Chloride 0.9% 250 ML 250 ML IV SCH (10:00)
[2022-06-05] MEDS: Amiodarone 200 MG TAB PO SCH (10:03)
[2022-06-05] MEDS: Insulin Glargine 30 UNITS/0.3 ML VIAL SC SCH (10:03)
[2022-06-05] MEDS: Lansoprazole 15 MG/5 ML (BATCHED)UDCUP PER TUBE SCH (10:04)
[2022-06-05] MEDS: Senokot S 8.6-50 MG TAB PO SCH ×2 (10:05→20:33)
[2022-06-05] MEDS: Polyethylene Glycol 3350 17 GM Packet PO SCH (10:05)
[2022-06-05] MEDS: Saccharomyces boulardii 250 MG CAP PO SCH (10:05)
[2022-06-05] MEDS: Tamsulosin HCl 0.4 MG CAP PO SCH (10:06)
[2022-06-05] MEDS ORDERED: Sterile Water 10 ML ONE (10:19)
[2022-06-05] MEDS ORDERED: Vecuronium 10 MG VIAL ONE (10:19)
[2022-06-05] MEDS ORDERED: Vecuronium 10 MG VIAL IV SCH (10:30)
[2022-06-05] MEDS ORDERED: Furosemide 40 MG/4 ML VIAL SLOW IVP SCH (11:00)
[2022-06-05 12:05] LABS: Actual Bicarbonate (HCO3a) 29.2 mEq/L (22-28); Base Excess (BEa) 5.6 mEq/L (-2.0 to +3.0); CO2 Tension 38.4 mmHg (35.0-45.0); Calcium, Ionized (arterial) 1.14 mmol/L (1.12-1.30); Hemoglobin (Hb) 8.5 g/dL (14.0-18.0); O2 Tension (PaO2), arterial 73.8 mmHg (> 70.0); Potassium - ABG Lab 3.73 mmol/L (3.70-5.30)
[2022-06-05 12:13] LABS: Puncture Site LRA
[2022-06-05 14:09] LABS: Vancomycin, Trough 11.1 ug/mL
[2022-06-05] MEDS: Vancomycin 1.5 GRAM/300 ML BAG 1.5 GM in Premix Bag 1 BAG IVPB SCH (15:31)
[2022-06-05] MEDS: Vancomycin 1 GM in Premix Bag 1 BAG IVPB SCH (15:39)
[2022-06-05 19:52] LABS: #Basophils 0.1 thou/uL (0.0-0.2); #Eosinphils 0.1 thou/uL (0.0-0.7); #Lymphocytes 0.2 thou/uL (1.20-3.40); #Monocytes 0.3 thou/uL (0.11-0.59); #Neutrophils 9.2 thou/uL (1.40-6.50); %Basophils 0.6 % (0.0-1.0); %Eosinophils 0.8 % (0.0-10.0); %Lymphocytes 1.8 % (21.0-51.0); %Monocytes 3.3 % (0.0-10.0); %Neutrophils 93.4 % (42.0-75.0); Hemoglobin 8.1 g/dL (14.0-18.0); Mean Corpuscular Hemoglobin 29.8 pg (27.0-31.0); Mean Corpuscular Volume 90.4 fl (78.0-98.0); Mean Platelet Volume 9.3 fL (7.4-10.4); Platelet Count 80 10x3/uL (130-400); RBC Distribution Width 14.2 % (11.5-14.5); White Blood Cell (WBC) Count 9.9 10x3/uL (4.8-10.8)
[2022-06-05 20:12] LABS: Anion Gap 10 mmol/L (10-20); BUN (Urea Nitrogen) 75 mg/dL (8.4-25.7); CK (CPK) 91 U/L (30-200); Calc. Creatinine Clearance 70 mL/min (70-130); Calcium 7.5 mg/dL (7.8-10.44); Carbon Dioxide 30 mmol/L (23-31); Chloride 113 mmol/L (98-107); Estimated GFR 92; Glucose 110 mg/dL (83-110); Magnesium 2.1 mg/dL (1.6-2.6); Phosphorus 3.5 mg/dL (2.3-4.7); Sodium 149 mmol/L (136-145)
[2022-06-05] MEDS: Melatonin 3 MG TAB PO SCH (20:37)
[2022-06-06] MEDS: Ipratropium/Albuterol 3 ML NEB NEB SCH ×4 (00:31→18:18)
[2022-06-06] MEDS: Fentanyl CADD 100 ML IV SCH (01:58)
[2022-06-06] MEDS: Acetaminophen 325 MG TAB PO SCH ×4 (02:03→20:55)
[2022-06-06] MEDS ORDERED: Sterile Water 0 ML ONE (04:34)
[2022-06-06 05:01] LABS: #Eosinphils 0.1 thou/uL (0.0-0.7); #Lymphocytes 0.6 thou/uL (1.20-3.40); #Monocytes 0.6 thou/uL (0.11-0.59); #Neutrophils 11.1 thou/uL (1.40-6.50); %Eosinophils 1.2 % (0.0-10.0); %Lymphocytes 5.1 % (21.0-51.0); %Monocytes 4.6 % (0.0-10.0); %Neutrophils 89.1 % (42.0-75.0); Hemoglobin 9.7 g/dL (14.0-18.0); Mean Corpuscular HGB CONC 33.6 g/dL (32.0-36.0); Mean Corpuscular Volume 92.3 fl (78.0-98.0); Mean Platelet Volume 9.1 fL (7.4-10.4); Platelet Count 102 10x3/uL (130-400); RBC Distribution Width 13.6 % (11.5-14.5); Red Blood Cell (RBC) Count 3.12 mill/uL (4.70-6.10); White Blood Cell (WBC) Count 12.5 10x3/uL (4.8-10.8)
[2022-06-06] MEDS: ADMIXTURE FEE IVPB SCH ×2 (05:03→17:01)
[2022-06-06] MEDS: CEFEPIME IVPB SCH ×2 (05:03→17:01)
[2022-06-06] MEDS: DEXTROSE IVPB SCH ×2 (05:03→17:01)
[2022-06-06] MEDS: WATER IVPB SCH ×2 (05:03→17:01)
[2022-06-06] MEDS: Midazolam HCl 2 mg/2 ml Vial SLOW IVP PRN ×3 (05:11→09:30)
[2022-06-06 05:18] LABS: Phosphorus 3.7 mg/dL (2.3-4.7)
[2022-06-06 05:20] LABS: Anion Gap 11 mmol/L (10-20); BUN (Urea Nitrogen) 79 mg/dL (8.4-25.7); Calc. Creatinine Clearance 62 mL/min (70-130); Calcium 7.5 mg/dL (7.8-10.44); Carbon Dioxide 27 mmol/L (23-31); Chloride 112 mmol/L (98-107); Estimated GFR 89; Glucose 164 mg/dL (83-110); Magnesium 2.2 mg/dL (1.6-2.6); Potassium 4.2 mmol/L (3.5-5.1); Sodium 146 mmol/L (136-145)
[2022-06-06 08:46] LABS: Actual Bicarbonate (HCO3a) 24.7 mEq/L (22-28); Base Excess (BEa) 3.1 mEq/L (-2.0 to +3.0); Calcium, Ionized (arterial) 1.04 mmol/L (1.12-1.30); Carboxyhemoglobin (COHb) 1.4 gm% (0.0-3.0); Hemoglobin (Hb) 10.6 g/dL (14.0-18.0); pH, Arterial 7.56 (7.35-7.45)
[2022-06-06 08:47] LABS: Puncture Site LRA
[2022-06-06] MEDS: Furosemide 20 MG/2 ML VIAL SLOW IVP SCH (08:52)
[2022-06-06] MEDS: Senokot S 8.6-50 MG TAB PO SCH ×2 (08:52→22:11)
[2022-06-06] MEDS: Tamsulosin HCl 0.4 MG CAP PO SCH (08:52)
[2022-06-06] MEDS: Saccharomyces boulardii 250 MG CAP PO SCH (08:52)
[2022-06-06] MEDS ORDERED: Calcium Chloride 13.6 MEQ in Sodium Chloride 0.9% 100 ML IVPB SCH (09:30)
[2022-06-06] MEDS: Lansoprazole 15 MG/5 ML (BATCHED)UDCUP PER TUBE SCH (09:43)
[2022-06-06] MEDS: Polyethylene Glycol 3350 17 GM Packet PO SCH (09:44)
[2022-06-06] MEDS ORDERED: Furosemide 40 MG/4 ML VIAL SLOW IVP SCH ×2 (09:45→23:00)
[2022-06-06 10:13] VITALS: BMI 25.4
[2022-06-06] MEDS: Insulin Glargine 30 UNITS/0.3 ML VIAL SC SCH (10:21)
[2022-06-06] MEDS: Insulin Regular 300 UNITS/3 ML VIAL SC PRN (13:23)
[2022-06-06] MEDS: DOPamine 400 MG/D5W 250 ML 250 ML IVPB SCH (17:02)
[2022-06-06] MEDS: Vancomycin 1.5 GRAM/300 ML BAG 1.5 GM in Premix Bag 1 BAG IVPB SCH (17:06)
[2022-06-06 19:55] LABS: Actual Bicarbonate (HCO3a) 27.7 mEq/L (22-28); Base Excess (BEa) 0.4 mEq/L (-2.0 to +3.0); CO2 Tension 57.8 mmHg (35.0-45.0); Calcium, Ionized (arterial) 1.19 mmol/L (1.12-1.30); Hemoglobin (Hb) 11.3 g/dL (14.0-18.0); Potassium - ABG Lab 4.34 mmol/L (3.70-5.30)
[2022-06-06 19:57] LABS: O2 Tension (PaO2), arterial 57.1 mmHg (> 70.0); Puncture Site RRA
[2022-06-06] MEDS: Melatonin 3 MG TAB PO SCH (20:55)
[2022-06-06 21:00] LABS: Troponin I 0.227 ng/mL (< 0.028)
[2022-06-06 21:04] LABS: INR-International Normal Ratio 2.2; PTT 44.8 sec (22.9-36.1); Prothrombin Time 25.8 sec (12.0-14.7)
[2022-06-07] MEDS: Fentanyl CADD 100 ML IV SCH (00:13)
[2022-06-07 00:40] LABS: Critical Call Chem Troponin I RESULT DECREASING; Troponin I 0.212 ng/mL (< 0.028)
[2022-06-07] MEDS: Ipratropium/Albuterol 3 ML NEB NEB SCH ×5 (01:41→23:57)
[2022-06-07] MEDS: Acetaminophen 325 MG TAB PO SCH ×4 (02:00→21:10)
[2022-06-07 04:24] LABS: #Eosinphils 0.2 thou/uL (0.0-0.7); #Lymphocytes 0.2 thou/uL (1.20-3.40); #Monocytes 0.8 thou/uL (0.11-0.59); #Neutrophils 8.1 thou/uL (1.40-6.50); %Eosinophils 1.6 % (0.0-10.0); %Lymphocytes 2.5 % (21.0-51.0); %Monocytes 8.1 % (0.0-10.0); %Neutrophils 87.8 % (42.0-75.0); Hemoglobin 9.1 g/dL (14.0-18.0); Mean Corpuscular HGB CONC 32.8 g/dL (32.0-36.0); Mean Corpuscular Hemoglobin 30.8 pg (27.0-31.0); Mean Corpuscular Volume 93.9 fl (78.0-98.0); Mean Platelet Volume 8.8 fL (7.4-10.4); Platelet Count 92 10x3/uL (130-400); Red Blood Cell (RBC) Count 2.94 mill/uL (4.70-6.10); White Blood Cell (WBC) Count 9.2 10x3/uL (4.8-10.8)
[2022-06-07 04:40] LABS: INR-International Normal Ratio 1.9; PTT 44.5 sec (22.9-36.1); Prothrombin Time 22.3 sec (12.0-14.7)
[2022-06-07 04:48] LABS: Anion Gap 12 mmol/L (10-20); BUN (Urea Nitrogen) 89 mg/dL (8.4-25.7); Calc. Creatinine Clearance 46 mL/min (70-130); Carbon Dioxide 28 mmol/L (23-31); Chloride 108 mmol/L (98-107); Estimated GFR 60; Glucose 80 mg/dL (83-110); Magnesium 2.3 mg/dL (1.6-2.6); Phosphorus 5.2 mg/dL (2.3-4.7); Potassium 4.2 mmol/L (3.5-5.1); Sodium 144 mmol/L (136-145)
[2022-06-07] MEDS: ADMIXTURE FEE IVPB SCH ×2 (06:07→15:49)
[2022-06-07] MEDS: WATER IVPB SCH ×2 (06:07→15:49)
[2022-06-07] MEDS: DEXTROSE IVPB SCH ×2 (06:07→15:49)
[2022-06-07] MEDS: CEFEPIME IVPB SCH ×2 (06:07→15:49)
[2022-06-07 07:40] LABS: Actual Bicarbonate (HCO3a) 27.7 mEq/L (22-28); Base Excess (BEa) 1.7 mEq/L (-2.0 to +3.0); CO2 Tension 50.3 mmHg (35.0-45.0); Calcium, Ionized (arterial) 1.15 mmol/L (1.12-1.30); Carboxyhemoglobin (COHb) 0.5 gm% (0.0-3.0); Potassium - ABG Lab 4.24 mmol/L (3.70-5.30); pH, Arterial 7.36 (7.35-7.45)
[2022-06-07 07:47] LABS: O2 Tension (PaO2), arterial 51.7 mmHg (> 70.0); Puncture Site RBA
[2022-06-07 07:48] LABS: ALV-art Gradient 527.125 mmHg (0-20)
[2022-06-07] MEDS: Saccharomyces boulardii 250 MG CAP PO SCH (08:30)
[2022-06-07] MEDS: Polyethylene Glycol 3350 17 GM Packet PO SCH (08:30)
[2022-06-07] MEDS: Furosemide 20 MG/2 ML VIAL SLOW IVP SCH (08:30)
[2022-06-07] MEDS: Senokot S 8.6-50 MG TAB PO SCH ×2 (08:30→21:10)
[2022-06-07 08:42] LABS: Troponin I 0.262 ng/mL (< 0.028)
[2022-06-07] MEDS: Tamsulosin HCl 0.4 MG CAP PO SCH (08:58)
[2022-06-07] MEDS: Lansoprazole 15 MG/5 ML (BATCHED)UDCUP PER TUBE SCH (08:58)
[2022-06-07] MEDS: DOPamine 400 MG/D5W 250 ML 250 ML IVPB SCH (09:03)
[2022-06-07] MEDS ORDERED: Furosemide 20 MG/2 ML VIAL SLOW IVP ONE (09:25)
[2022-06-07] MEDS ORDERED: Midazolam In 0.9 % NaCl/PF 100 ML IVPB SCH (09:30)
[2022-06-07] MEDS: Insulin Glargine 30 UNITS/0.3 ML VIAL SC SCH (09:33)
[2022-06-07] MEDS: Albumin 25% 25 GM/100 ML BOT IVPB SCH ×2 (09:41→17:20)
[2022-06-07] MEDS ORDERED: Furosemide 100 MG, Admixture Fee 1 EACH in Sodium Chloride 0.9% 90 ML IVPB SCH (09:45)
[2022-06-07] MEDS ORDERED: Midazolam HCl 100 MG in Admixture Fee 1 EACH IVPB PRN (10:04)
[2022-06-07] MEDS ORDERED: Insulin Regular 300 UNITS/3 ML VIAL SC PRN (12:00)
[2022-06-07 15:43] LABS: Actual Bicarbonate (HCO3a) 29.2 mEq/L (22-28); Base Excess (BEa) 2.1 mEq/L (-2.0 to +3.0); CO2 Tension 59.5 mmHg (35.0-45.0); Calcium, Ionized (arterial) 1.14 mmol/L (1.12-1.30); Carboxyhemoglobin (COHb) 0.9 gm% (0.0-3.0); O2 Tension (PaO2), arterial 68.4 mmHg (> 70.0); Potassium - ABG Lab 4.01 mmol/L (3.70-5.30); pH, Arterial 7.31 (7.35-7.45)
[2022-06-07 15:45] LABS: Puncture Site RBA
[2022-06-07 15:46] LABS: ALV-art Gradient 570.225 mmHg (0-20)
[2022-06-07 15:50] LABS: Vancomycin, Trough 23.9 ug/mL
[2022-06-07] MEDS ORDERED: VANCOMYCIN 1.25 GM/250 ML BAG 1.25 GM in Premix Bag 1 BAG IVPB SCH (16:00)
[2022-06-07 18:16] LABS: #Basophils 0.1 thou/uL (0.0-0.2); #Eosinphils 0.1 thou/uL (0.0-0.7); #Lymphocytes 0.4 thou/uL (1.20-3.40); #Monocytes 0.7 thou/uL (0.11-0.59); #Neutrophils 4.4 thou/uL (1.40-6.50); %Basophils 1.5 % (0.0-1.0); %Eosinophils 2.5 % (0.0-10.0); %Lymphocytes 6.8 % (21.0-51.0); %Monocytes 12.1 % (0.0-10.0); %Neutrophils 77.1 % (42.0-75.0); Hemoglobin 8.6 g/dL (14.0-18.0); Mean Corpuscular HGB CONC 32.7 g/dL (32.0-36.0); Mean Corpuscular Hemoglobin 30.6 pg (27.0-31.0); Mean Corpuscular Volume 93.6 fl (78.0-98.0); Mean Platelet Volume 8.8 fL (7.4-10.4); Platelet Count 75 10x3/uL (130-400); RBC Distribution Width 14.1 % (11.5-14.5); Red Blood Cell (RBC) Count 2.79 mill/uL (4.70-6.10); White Blood Cell (WBC) Count 5.7 10x3/uL (4.8-10.8)
[2022-06-07 18:35] LABS: Anion Gap 11 mmol/L (10-20); BUN (Urea Nitrogen) 94 mg/dL (8.4-25.7); Calc. Creatinine Clearance 46 mL/min (70-130); Calcium 7.8 mg/dL (7.8-10.44); Carbon Dioxide 28 mmol/L (23-31); Chloride 107 mmol/L (98-107); Estimated GFR 55; Glucose 92 mg/dL (83-110); Magnesium 2.3 mg/dL (1.6-2.6); Phosphorus 5.7 mg/dL (2.3-4.7); Potassium 4.1 mmol/L (3.5-5.1); Sodium 142 mmol/L (136-145)
[2022-06-07] MEDS: Melatonin 3 MG TAB PO SCH (21:11)
[2022-06-08] MEDS: Albumin 25% 25 GM/100 ML BOT IVPB SCH (00:54)
[2022-06-08] MEDS: Acetaminophen 325 MG TAB PO SCH ×2 (01:06→10:24)
[2022-06-08] MEDS: DEXTROSE IVPB SCH (04:43)
[2022-06-08] MEDS: WATER IVPB SCH (04:43)
[2022-06-08] MEDS: ADMIXTURE FEE IVPB SCH (04:43)
[2022-06-08] MEDS: CEFEPIME IVPB SCH (04:43)
[2022-06-08 05:40] LABS: #Eosinphils 0.1 thou/uL (0.0-0.7); #Lymphocytes 0.3 thou/uL (1.20-3.40); #Monocytes 0.5 thou/uL (0.11-0.59); #Neutrophils 3.5 thou/uL (1.40-6.50); %Basophils 0.3 % (0.0-1.0); %Eosinophils 2.9 % (0.0-10.0); %Lymphocytes 6.8 % (21.0-51.0); %Monocytes 11.3 % (0.0-10.0); %Neutrophils 78.8 % (42.0-75.0); Hemoglobin 8.6 g/dL (14.0-18.0); Mean Corpuscular Hemoglobin 30.6 pg (27.0-31.0); Mean Corpuscular Volume 95.5 fl (78.0-98.0); Platelet Count 73 10x3/uL (130-400); RBC Distribution Width 14.2 % (11.5-14.5); Red Blood Cell (RBC) Count 2.81 mill/uL (4.70-6.10); White Blood Cell (WBC) Count 4.4 10x3/uL (4.8-10.8)
[2022-06-08 05:56] LABS: Anion Gap 13 mmol/L (10-20); BUN (Urea Nitrogen) 92 mg/dL (8.4-25.7); Calc. Creatinine Clearance 57 mL/min (70-130); Calcium 7.7 mg/dL (7.8-10.44); Carbon Dioxide 27 mmol/L (23-31); Chloride 106 mmol/L (98-107); Estimated GFR 71; Glucose 129 mg/dL (83-110); Magnesium 2.3 mg/dL (1.6-2.6); Phosphorus 6.4 mg/dL (2.3-4.7); Potassium 4.4 mmol/L (3.5-5.1); Sodium 142 mmol/L (136-145)
[2022-06-08] MEDS: Ipratropium/Albuterol 3 ML NEB NEB SCH ×2 (07:23→14:22)
[2022-06-08 07:44] LABS: Actual Bicarbonate (HCO3a) 27.3 mEq/L (22-28); Base Excess (BEa) -0.4 mEq/L (-2.0 to +3.0); Calcium, Ionized (arterial) 1.14 mmol/L (1.12-1.30); Carboxyhemoglobin (COHb) 0.3 gm% (0.0-3.0); Hemoglobin (Hb) 9.4 g/dL (14.0-18.0); O2 Tension (PaO2), arterial 100.2 mmHg (> 70.0); Potassium - ABG Lab 4.35 mmol/L (3.70-5.30); pH, Arterial 7.26 (7.35-7.45)
[2022-06-08 07:48] LABS: CO2 Tension 62.6 mmHg (35.0-45.0); Puncture Site RBA
[2022-06-08] MEDS ORDERED: Calcium Chloride 1 GM/10 ML Abboject SYRINGE ONE (07:50)
[2022-06-08] MEDS ORDERED: EPINEPHrine 1 MG/10 ML Abboject SYRINGE ONE (07:50)
[2022-06-08 08:26] VITALS: TEMP 95
[2022-06-08] MEDS ORDERED: Metolazone 2.5 MG TAB PO SCH (09:00)
[2022-06-08] MEDS: Lansoprazole 15 MG/5 ML (BATCHED)UDCUP PER TUBE SCH (10:25)
[2022-06-08] MEDS: Insulin Glargine 30 UNITS/0.3 ML VIAL SC SCH (10:25)
[2022-06-08] MEDS: Tamsulosin HCl 0.4 MG CAP PO SCH (10:26)
[2022-06-08] MEDS: Senokot S 8.6-50 MG TAB PO SCH (10:26)
[2022-06-08] MEDS: Saccharomyces boulardii 250 MG CAP PO SCH (10:26)
[2022-06-08] MEDS: Polyethylene Glycol 3350 17 GM Packet PO SCH (10:26)
[2022-06-08 10:47] VITALS: BP 162/63
[2022-06-08] MEDS ORDERED: Morphine 4 MG/ML VIAL SLOW IVP PRN (11:17)
[2022-06-08] MEDS ORDERED: Glycopyrrolate 0.2 MG/ML 5 ML SYRINGE SLOW IVP PRN (11:24)
[2022-06-08] MEDS ORDERED: Lorazepam 2 MG/ML VIAL SLOW IVP PRN (11:28)
[2022-06-08] MEDS ORDERED: Cefepime 1 GM in Sodium Chloride 0.9% 100 ML IVPB SCH (17:00)
== END 2022-06-08 11:38 | disposition expired | DRG 957 ==
LOC: ERS 15:42 → 2NO 19:46 → CCU 05-22 07:30
PROVIDERS: ADMIT Surgery; ATTEND Surgery
PROC: 0QHJ05Z Insertion of External Fixation Device into Right Fibula, Open Approach (ICD-10-PCS; principal; 2022-05-21)
PROC: 30233J1 Transfusion of Nonautologous Serum Albumin into Peripheral Vein, Percutaneous Approach (ICD-10-PCS; 2022-05-22)
PROC: 30233N1 Transfusion of Nonautologous Red Blood Cells into Peripheral Vein, Percutaneous Approach (ICD-10-PCS; 2022-05-22)
PROC: 3E033XZ Introduction of Vasopressor into Peripheral Vein, Percutaneous Approach (ICD-10-PCS; 2022-05-22)
PROC: 5A1935Z Respiratory Ventilation, Less than 24 Consecutive Hours (ICD-10-PCS; 2022-05-22)
PROC: 0BH18EZ Insertion of Endotracheal Airway into Trachea, Via Natural or Artificial Opening Endoscopic (ICD-10-PCS; 2022-05-22)
PROC: 0BJ08ZZ Inspection of Tracheobronchial Tree, Via Natural or Artificial Opening Endoscopic (ICD-10-PCS; 2022-05-26)
PROC: 5A1955Z Respiratory Ventilation, Greater than 96 Consecutive Hours (ICD-10-PCS; 2022-05-26)
PROC: 02HV33Z Insertion of Infusion Device into Superior Vena Cava, Percutaneous Approach (ICD-10-PCS; 2022-05-27)
PROC: B548ZZA Ultrasonography of Superior Vena Cava, Guidance (ICD-10-PCS; 2022-05-27)
PROC: 0BJ08ZZ Inspection of Tracheobronchial Tree, Via Natural or Artificial Opening Endoscopic (ICD-10-PCS; 2022-05-31)
PROC: 30233K1 Transfusion of Nonautologous Frozen Plasma into Peripheral Vein, Percutaneous Approach (ICD-10-PCS; 2022-06-01)
PROC: 06H03DZ Insertion of Intraluminal Device into Inferior Vena Cava, Percutaneous Approach (ICD-10-PCS; 2022-06-03)
PROC: 5A1945Z Respiratory Ventilation, 24-96 Consecutive Hours (ICD-10-PCS; 2022-06-03)
PROC: 5A1945Z Respiratory Ventilation, 24-96 Consecutive Hours (ICD-10-PCS; 2022-06-05)
PROC: 0B9B8ZZ Drainage of Left Lower Lobe Bronchus, Via Natural or Artificial Opening Endoscopic (ICD-10-PCS; 2022-06-06)
PROC: 0B988ZZ Drainage of Left Upper Lobe Bronchus, Via Natural or Artificial Opening Endoscopic (ICD-10-PCS; 2022-06-06)
DX: S82.831B Other fracture of upper and lower end of right fibula, initial encounter for open fracture type I or II (principal); A41.9 Sepsis, unspecified organism; S27.0XXA Traumatic pneumothorax, initial encounter; J80 Acute respiratory distress syndrome; J69.0 Pneumonitis due to inhalation of food and vomit; R65.21 Severe sepsis with septic shock; G93.41 Metabolic encephalopathy; S22.42XA Multiple fractures of ribs, left side, initial encounter for closed fracture; S22.21XA Fracture of manubrium, initial encounter for closed fracture; S32.058A Other fracture of fifth lumbar vertebra, initial encounter for closed fracture; S22.20XA Unspecified fracture of sternum, initial encounter for closed fracture; I31.39 Other pericardial effusion (noninflammatory); D62 Acute posthemorrhagic anemia; N17.9 Acute kidney failure, unspecified; I82.403 Acute embolism and thrombosis of unspecified deep veins of lower extremity, bilateral; E87.0 Hyperosmolality and hypernatremia; D68.9 Coagulation defect, unspecified; I50.32 Chronic diastolic (congestive) heart failure; Z51.5 Encounter for palliative care; Z66 Do not resuscitate; T79.6XXA Traumatic ischemia of muscle, initial encounter; T14.8XXA Other injury of unspecified body region, initial encounter; I25.10 Atherosclerotic heart disease of native coronary artery without angina pectoris; F41.9 Anxiety disorder, unspecified; D69.6 Thrombocytopenia, unspecified; E83.39 Other disorders of phosphorus metabolism; R73.9 Hyperglycemia, unspecified; T45.515A Adverse effect of anticoagulants, initial encounter; I48.0 Paroxysmal atrial fibrillation; R31.9 Hematuria, unspecified; I46.9 Cardiac arrest, cause unspecified; Z20.822 Contact with and (suspected) exposure to COVID-19; Z88.2 Allergy status to sulfonamides; V89.2XXA Person injured in unspecified motor-vehicle accident, traffic, initial encounter; Y92.9 Unspecified place or not applicable
CPT/HCPCS: 27840; 31624; 36415; 36416; 36430; 36556; 36600; 37191; 70450; 71045; 71260; 72125; 72170; 74018; 74177; 80048; 80053; 80202; 81001; 82533; 82550; 82553; 82805; 83036; 83605; 83735; 83880; 84100; 84145; 84484; 85025; 85610; 85730; 86850; 86900; 86901; 87040; 87070; 87086; 87205; 87811; 89220; 90471; 90715; 93005; 93010; 93306; 93970; 94002; 94003; 94660; 96365; 96375; C1713; C1751; C1769; C1776; C1880; G0390; J0171; J0282; J0692; J1100; J1160; J1265; J1630; J1650; J1720; J1815; J1885; J1940; J2001; J2250; J2270; J2272; J2370; J2405; J2543; J2704; J2920; J3010; J3370; J3370-JW; J3430; J3475; J3480; J3490; J7030; J7050; J7070; J7120; J7620; P9016; P9045; P9047; P9059; Q9967; S0028; U0003; U0005